=== PATIENT | male | born 1950 | race Caucasian/White ===

== ENCOUNTER → 2016-05-11 | Outpatient (CLI) | payer OTHER, BC | LOC: MMPC 10:00 | PROVIDERS: ATTEND Podiatrist Foot & Ankle Surgery | DX: E29.1 Testicular hypofunction (principal); L97.521 Non-pressure chronic ulcer of other part of left foot limited to breakdown of skin; E11.9 Type 2 diabetes mellitus without complications; I87.2 Venous insufficiency (chronic) (peripheral); E66.01 Morbid (severe) obesity due to excess calories; F17.209 Nicotine dependence, unspecified, with unspecified nicotine-induced disorders | CPT/HCPCS: 29581 ×2; A6207; A6441; A6443; A6449; A6454; G0463; J1071 ==

== ENCOUNTER → 2016-05-19 | Outpatient (CLI) | payer OTHER, BC ==
[2016-05-19 11:40] LABS: BASOPHILS # (AUTO) 0.06 10*3/UL; BASOPHILS % (AUTO) 0.5 % (0-1); EOSINOPHILS % (AUTO) 4.5 % (0-8); HEMATOCRIT 39.4 % (42.0-52.0); HEMOGLOBIN 13.3 g/dL (14.0-18.0); IMM GRAN % (AUTO) 0.4 % (0-5); IMM GRAN# (AUTO) 0.05 10*3/UL; LYMPHOCYTES # (AUTO) 2.88 10*3/uL; LYMPHOCYTES % (AUTO) 23.8 % (10-50); MEAN CORPUSCULAR HEMOGLOBIN 29.2 PG (27-31); MEAN CORPUSCULAR HGB CONC 33.8 g/dL (33-37); MONOCYTES # (AUTO) 1.07 10*3/UL (0.3-0.8); MONOCYTES % (AUTO) 8.8 % (5-15); RDW COEFFICIENT OF VARIATION 16.4 % (11.5-14.5); RED BLOOD COUNT 4.56 10^6/uL (4.70-6.10)
[2016-05-19 11:42] LABS: PLATELET MORPHOLOGY COMMENT NORMAL MORPHOLOGY (NORM)
[2016-05-19 11:59] LABS: HEMOGLOBIN A1C 5.86 % (4.2-6.0); MEAN BLOOD GLUCOSE (CALC) 109.138 mg/dL
[2016-05-19 12:12] LABS: ASPARTATE AMINO TRANSFERASE 18 IU/L (21-57); BILIRUBIN,TOTAL 0.5 mg/dL (0.3-1.2); BLOOD UREA NITROGEN 18 mg/dL (7-22); CALCIUM 9.9 mg/dL (8.7-10.7); CHLORIDE 95 meq/L (98-112); CREATININE 0.8 mg/dL (0.70-1.50); EST GLOMERULAR FILTRATION > 60 (>60 ml/min/1.73m(2)); GLUCOSE 92 mg/dL (78-110); SODIUM 134 meq/L (135-145); TOTAL PROTEIN 6.6 g/dL (6.1-8.0)
[2016-05-19 12:13] LABS: LDL CHOLESTEROL,CALCULATED 109.2 mg/dL; URIC ACID 6.2 mg/dl (3.8-8.5)
== END ==
LOC: MOB LAB 11:04
PROVIDERS: ATTEND Internal Medicine
DX: E11.9 Type 2 diabetes mellitus without complications (principal); E78.5 Hyperlipidemia, unspecified; J44.9 Chronic obstructive pulmonary disease, unspecified; E29.1 Testicular hypofunction; M10.9 Gout, unspecified; F17.210 Nicotine dependence, cigarettes, uncomplicated; Z12.5 Encounter for screening for malignant neoplasm of prostate; Z79.899 Other long term (current) drug therapy
CPT/HCPCS: 36415; 80053; 80061; 82550; 83036; 84403; 84443; 84550; 85025; G0103

== ENCOUNTER → 2016-05-24 | Outpatient (CLI) | payer OTHER, BC ==
[2016-05-24 10:47] LABS: CREATININE, URINE 79.4 MG/DL (15-500)
== END ==
LOC: LAB 10:27
PROVIDERS: ATTEND Internal Medicine
DX: E11.9 Type 2 diabetes mellitus without complications (principal)
CPT/HCPCS: 82043

== ENCOUNTER → 2016-05-26 | Outpatient (CLI) | payer OTHER, BC | LOC: MMPC 10:00 | PROVIDERS: ATTEND Podiatrist Foot & Ankle Surgery | DX: L97.522 Non-pressure chronic ulcer of other part of left foot with fat layer exposed (principal); E11.9 Type 2 diabetes mellitus without complications; E66.01 Morbid (severe) obesity due to excess calories; I87.2 Venous insufficiency (chronic) (peripheral) | CPT/HCPCS: 29581 ×2; A6441; A6443; A6449; A6454; G0463 ==

== ENCOUNTER → 2016-06-08 | Outpatient (CLI) | payer OTHER, BC | LOC: MMPC 10:00 | PROVIDERS: ATTEND Podiatrist Foot & Ankle Surgery | DX: L97.522 Non-pressure chronic ulcer of other part of left foot with fat layer exposed (principal); E11.622 Type 2 diabetes mellitus with other skin ulcer; I87.2 Venous insufficiency (chronic) (peripheral); I87.8 Other specified disorders of veins; F17.210 Nicotine dependence, cigarettes, uncomplicated | CPT/HCPCS: 29581 ×2; A6207; A6441; A6443; A6449; A6454; G0463 ==

== ENCOUNTER → 2016-06-23 | Outpatient (CLI) | payer OTHER, BC | LOC: MMPC 10:00 | PROVIDERS: ATTEND Podiatrist Foot & Ankle Surgery | DX: L97.522 Non-pressure chronic ulcer of other part of left foot with fat layer exposed (principal); I87.2 Venous insufficiency (chronic) (peripheral); E11.622 Type 2 diabetes mellitus with other skin ulcer; E29.1 Testicular hypofunction; F17.218 Nicotine dependence, cigarettes, with other nicotine-induced disorders; I73.9 Peripheral vascular disease, unspecified | CPT/HCPCS: 29581; 99213; A6207 ==

== ENCOUNTER → 2016-07-13 | Outpatient (CLI) | payer OTHER, BC | LOC: MMPC 10:00 | PROVIDERS: ATTEND Podiatrist Foot & Ankle Surgery | DX: L97.322 Non-pressure chronic ulcer of left ankle with fat layer exposed (principal); L97.522 Non-pressure chronic ulcer of other part of left foot with fat layer exposed; L97.221 Non-pressure chronic ulcer of left calf limited to breakdown of skin; E11.622 Type 2 diabetes mellitus with other skin ulcer; E66.01 Morbid (severe) obesity due to excess calories; I87.2 Venous insufficiency (chronic) (peripheral); E29.1 Testicular hypofunction; I73.9 Peripheral vascular disease, unspecified; Z89.511 Acquired absence of right leg below knee; F17.219 Nicotine dependence, cigarettes, with unspecified nicotine-induced disorders | CPT/HCPCS: 99213; G0463; J1071 ==

== ENCOUNTER → 2016-07-22 | Outpatient (CLI) | payer OTHER, BC | LOC: MMPC 10:00 | PROVIDERS: ATTEND Podiatrist Foot & Ankle Surgery | DX: E11.9 Type 2 diabetes mellitus without complications (principal); E66.01 Morbid (severe) obesity due to excess calories; I87.2 Venous insufficiency (chronic) (peripheral); E11.52 Type 2 diabetes mellitus with diabetic peripheral angiopathy with gangrene; F17.209 Nicotine dependence, unspecified, with unspecified nicotine-induced disorders | CPT/HCPCS: 97602; G0463 ==

== ENCOUNTER 2016-08-03 10:47 | Emergency (ER) | payer OTHER, BC ==
[2016-08-03] MEDS ORDERED: ONDANSETRON 4 MG/2 ML VIAL IVP ONE (11:11)
[2016-08-03] MEDS ORDERED: MORPHINE SULFATE 4 MG/1 ML IVP ONE (11:11)
[2016-08-03] MEDS ORDERED: Sodium Chloride 0.9% 1,000 ML PRIMARY IV ONE (11:11)
--- NOTE | 2016-08-03 11:17 | PDOC ---
Foot / Ankle Injury - General Chief Complaint: Lower Extremity Problem/Injury Stated Complaint: NOT FEELING WELL, L LEG NUMB/BLACK x2 DAYS Date Seen by Provider: 08/03/16 Time Seen by Provider: 11:12 Source: POSITIVE: Patient, Spouse Exam Limitations: POSITIVE: No limitations Nurse's Notes Reviewed & Considered: Yes - History of Present Illness Initial Comments: The patient comes in today with a chief complaint of leg pain left lower extremity. Patient just finished a course of Keflex yesterday for infection in his left lower extremity. At this time he denies any fevers chills sweats, nausea vomiting or diarrhea, no chest pain, no shortness of breath, no cough. His pain has been increasing over the last 2 days, and his states that his swelling and exudate from his wounds has increased. He has a large eschar over the dorsum of his left foot. 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 His wounds initially started as a small pressure ulcer on his foot. Now the entire lower leg below the knee is involved. Have you received a tetanus shot in the past 10 years?: Unknown Location: Left Foot Timing: REPORTS: Constant Duration: Unknown Severity: Severe Quality: REPORTS: "Pain", Throbbing Location at Time of Onset: REPORTS: Home Context: REPORTS: Other (wound infection) Modifying Factors: REPORTS: Movement, Nothing Relieves Associated Symptoms: REPORTS: Numbness Distally, Swelling Any Prior Injuries Related to Current Complaint?: Yes (vasculopathy) - Patient Allergies Allergies/Adverse Reactions: Allergies Allergy/AdvReac Type Severity Reaction Status Date / Time Penicillins Allergy Severe Anaphylaxis Verified 08/03/16 10:51 Sulfa (Sulfonamide Allergy Unknown childhood Verified 08/03/16 10:51 Antibiotics) - Patient Home Medications Home Medications: Home Medications Garlic [Garlic Oil] 1 each PO DAILY 11/09/10 Cholecalciferol (Vitamin D3) [Vitamin D3] 1 cap PO QD #90 cap 04/07/14 Aspirin [Aspirin EC] 1 tab PO QD #90 tab 07/13/15 Oxycodone HCl [Oxaydo] 75 mg PO Q6H 12/13/15 Permethrin 60 gm TOPICAL ONCE #1 tube 04/07/16 Testosterone Cypionate 0.5 ml IM every 2 weeks #0 ml 12/07/16 Collagenase Ointment [Santyl Ointment] 30 gm TOPICAL QD #1 tube 04/28/16 Lisinopril 1 tab PO DAILY #30 tab 05/10/16 Allopurinol 0.5 tab PO QD #30 tab 05/24/16 Furosemide [Lasix] 2 tab PO QAM #60 tab 05/24/16 Gabapentin 1 cap PO TID #90 cap 05/24/16 Potassium Chloride [Klor-Con M20] 1 tab PO DAILY #30 tab 05/24/16 Ipratropium Aubrey 1 - 2 spr LUCY AC PRN #1 spray 05/26/16 Levalbuterol Tartrate [Xopenex Hfa] 2 puff INH Q4-6H PRN #2 inh 06/09/16 Triamcinolone Acetonide 60 gm TP QID PRN #3 tube 08/02/16 Past Medical History - heen HEENT History: Hard of Hearing, Dental Disorders Additional HEENT History: NO TEETH Cardiovascular History: Hypertension, PVD, Hyperlipidemia Respiratory History: Asthma, COPD, Sleep Apnea, Home Oxygen Use, Home CPAP Use Additional Respiratory History: 3 LITERS AT NOC Gastrointestinal History: Diverticulitis Additional Gastrointestinal History: LLQ PAIN. CONSTIPATION Genitourinary History: Denies History Endocrine History: Denies History Additional Endocrine History: STOPPED JANUMET FOR 3 MONTHS, LOST 77 POUNDS. 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 Anesthesia Reactions: No Malignant Hyperthermia: No Significant Family History: Cancer, COPD, Diabetes, Heart disease, Hypertension ROS - Limitations ROS Limitations: No Limitations Constitution: REPORTS: Denies Symptoms Cardiovascular: REPORTS: Denies Cardiac Symptoms Respiratory: REPORTS: Denies Resp Symptoms Neurological: REPORTS: Denies Neuro Symptoms Gastrointestinal: REPORTS: Denies GI Symptoms Endocrine: REPORTS: Fatigue Musculoskeletal: REPORTS: Calf Pain, Lower Extremity Swelling, Pedal Edema, Other (Eschar of the dorsum of the left foot, severe edema, breakdown of skin from the knee down.) Genitourinary: REPORTS: Denies Symptoms Eyes: REPORTS: Denies Symptoms ENT: REPORTS: Denies Symptoms Skin: REPORTS: Other (Skin infection and breakdown of the skin secondary to poor perfusion of the left lower extremity.) Lympathic: REPORTS: Denies Lympathic Symptoms Immunologic: POSITIVE: Denies Symptoms Psychiatric: POSITIVE: Denies Psych Symptoms Foot / Ankle Exam - General Appearance General Appearance: POSITIVE: Alert, Cooperative, No Evidence of Trauma, Moderate Distress - Extremities Foot: POSITIVE: Soft Tissue Tenderness, Bony Tenderness, Swelling, Mir. ROM d/t Decr. Funct., Other (eschar over the dorsum of the foot, breakdown of the skin secondary to poor perfusion.) Ankle: POSITIVE: Soft-Tissue Tenderness, Swelling, Ecchymosis Gait: POSITIVE: Unable to Bear Weight Neuro: POSITIVE: Decreased Fine Touch Vascular: POSITIVE: Cool Extremity, Poor Capillary Refill, Absent Pulses Tendons: POSITIVE: Limited Extension, Limited Flexion Skin: POSITIVE: Warm, Dry, Other (no rashes) - HEENT HEENT: POSITIVE: Head Inspection Nml, Eyes Inspection Nml, Ears Inspection Nml, Nose Inspection Nml, PERRL, EOMI - Neck / Back Neck / Back: Normal Inspection, Non-Tender - Respiratory / CVS Respiratory / CVS: POSITIVE: Chest Non-Tender, No Respiratory Distress, Heart Sounds Normal, Regular Rate/Rhythm, Breath Sounds Normal Peripheral Pulses: Dorsalis-pedis (L): 0 - Abdomen Abdomen: Soft: (All Quadrants), Normal Bowel Sounds: (All Quadrants), Denies Tenderness: (All Quadrants) Foot / Ankle Progress - Results Reviewed by me Pain Medication Addressed: POSITIVE: Yes Lab Results Reviewed: Yes Lab Results:: Laboratory Results 08/03/16 Range/Units 11:20 WBC 18.79 H (4.8-10.8) 10^3/uL RBC 4.55 L (4.70-6.10) 10^6/uL Hgb 12.5 L (14.0-18.0) g/dL Hct 38.4 L (42.0-52.0) % MCV 84.4 (80-90) FL MCH 27.5 (27-31) PG MCHC 32.6 L (33-37) g/dL RDW Std Deviation 45.1 (39-50) fL RDW Coeff of Darius 15.0 H (11.5-14.5) % Plt Count 431 H (140-350) 10*3/uL MPV 9.5 (7.4-12.2) FL Neutrophils % (Manual) 86 H (50-80) % Band Neutrophils % 2 (0-10) % Lymphocytes % (Manual) 7 L (10-50) % Monocytes % (Manual) 4 (0-12) % Eosinophils % (Manual) 1 (0-8) % Basophils % (Manual) 0 (0-1) % Metamyelocytes % Not Reportable Myelocytes % Not Reportable Promyelocytes % Not Reportable Blast Cells Not Reportable WBC Morphology Comment Normal morphology (NORM) Plt Morphology Comment Normal morphology (NORM) RBC Morph Comment Normal morphology (NORM) Sodium 137 (135-145) meq/L Potassium 3.9 (3.8-5.2) meq/L Chloride 100 (98-112) meq/L Carbon Dioxide 25 (23-33) meq/L Anion Gap 12 (5-20) BUN 13 (7-22) mg/dL Creatinine 0.7 (0.70-1.50) mg/dL Estimated GFR > 60 (>60 ml/min/1.73m(2)) BUN/Creatinine Ratio 18.57 (6-20) Glucose 132 H (78-110) mg/dL Calculated Osmolality 285.0 (267-292) mOsm/kg Lactic Acid 1.9 (0.70-2.10) MMOL/L Calcium 9.3 (8.7-10.7) mg/dL Magnesium 1.8 (1.6-2.4) mg/dL Total Bilirubin 0.6 (0.3-1.2) mg/dL AST 40 (21-57) IU/L ALT 28 (21-72) IU/L Alkaline Phosphatase 108 (38-126) IU/L NT-Pro-B Natriuret Pep 927 H (0-125) PG/ML Total Protein 7.3 (6.1-8.0) g/dL Albumin 3.4 L (3.5-4.8) g/dL Globulin 3.9 (2.50-4.10) g/dL Albumin/Globulin Ratio 0.80 L (1.3-2.0) mg/g - Patient's Progress Status: POSITIVE: Unchanged MDM / ED Course: The patient was evaluated, an IV started, blood drawn and sent to the lab for studies, morphine and Zofran as well as normal saline were provided IV. Findings: CBC shows a white count of 18.7, anemia with hemoglobin of 12. Wound cultures show many gram-positive cocci, rare gram-negative rods, moderate white blood cells. Comprehensive metabolic panel is unremarkable with good renal function. BNP is slightly elevated. SAVANNAH was performed and shows a 0.7. I feel that this SAVANNAH is most likely artificially elevated because of incompressible arteries. Assessment: Arterial insufficiency with multiple infected wounds of the left lower extremity. Plan: I was able to contact Dr.Johnna Moreland and [place] [facility] [place] graciously accepted the patient for transfer. Patient has need for orthopedic consultation, vascular consultation, and infectious disease consultation. - Consult Counseled: POSITIVE: Patient, Family, RE: Lab Results, RE: DX Patient Care Time - Estimated PCT Patient Care Time (In Minutes): 30 Vital Signs - Recent Vital Signs Vital Signs: Vital Signs (Last 8 hours) Temp Pulse Resp BP Pulse Ox 08/03/16 10:42 97.4 F 104 H 20 113/103 91 - VS Reviewed Vital Signs Reviewed: Yes Discharge Clinical Impression: Vascular insufficiency of extremity, Local infection of wound Discharge Disposition: Transferred to Tertiary Care Facility Condition: Stable Date Decision to Transfer to Another Facility: 08/03/16 Time Decision to Transfer to Another Facility: 12:52
[2016-08-03 11:35] VITALS: RESP 20
[2016-08-03 11:38] LABS: HEMATOCRIT 38.4 % (42.0-52.0); HEMOGLOBIN 12.5 g/dL (14.0-18.0); MEAN CORPUSCULAR HEMOGLOBIN 27.5 PG (27-31); MEAN CORPUSCULAR HGB CONC 32.6 g/dL (33-37); MEAN CORPUSCULAR VOLUME 84.4 FL (80-90); MEAN PLATELET VOLUME 9.5 FL (7.4-12.2); RED BLOOD COUNT 4.55 10^6/uL (4.70-6.10)
[2016-08-03 11:50] LABS: BLOOD UREA NITROGEN 13 mg/dL (7-22); BUN/CREATININE RATIO 18.57 (6-20); CALCIUM 9.3 mg/dL (8.7-10.7); EST GLOMERULAR FILTRATION > 60 (>60 ml/min/1.73m(2)); MAGNESIUM 1.8 mg/dL (1.6-2.4); SERUM ALBUMIN 3.4 g/dL (3.5-4.8)
[2016-08-03 11:55] LABS: BAND NEUTROPHILS % 2 % (0-10); BASOPHILS % (MANUAL) 0 % (0-1); EOSINOPHILS % (MANUAL) 1 % (0-8); LYMPHOCYTES % (MANUAL) 7 % (10-50); MONOCYTES % (MANUAL) 4 % (0-12); NEUTROPHILS % (MANUAL) 86 % (50-80)
[2016-08-03 11:56] LABS: PLATELET MORPHOLOGY COMMENT NORMAL MORPHOLOGY (NORM); RBC MORPHOLOGY COMMENT NORMAL MORPHOLOGY (NORM); WBC MORPHOLOGY COMMENT NORMAL MORPHOLOGY (NORM)
[2016-08-03 13:35] VITALS: TEMP 98.5
== END 2016-08-03 13:15 | disposition short-term general hospital (02) ==
LOC: ER 10:47 → SUPCPDRO 10:47 → ER 13:15
DX: L08.89 Other specified local infections of the skin and subcutaneous tissue (principal); I99.8 Other disorder of circulatory system; Z89.621 Acquired absence of right hip joint
CPT/HCPCS: 36415; 80053; 83605; 83735; 83880; 85007; 87040; 87070; 87077; 87186; 87205; 96374; 96375; 99282; J2270; J2405; J7030

== ENCOUNTER 2016-08-11 10:37 | Inpatient (IN) | payer OTHER, BC ==
--- NOTE | 2016-08-11 11:22 | PDOC ---
History and Physical - History of Present Illness Chief Complaint: Bilateral lower leg amputee here for rehabilitation History of Present Illness: This very nice 66-year-old gentleman with the history of severe peripheral vascular disease and U pathic peripheral neuropathy he had a right above-knee amputation and a right [id number] amputation on 12/31/2015 and they 're to nonhealing presumed arterial ulceration and wound infection at that time and was discharged to [facility] and he started having some ulcers in the left foot is also on the left but continued to get worse they were infected then the patient underwent below the knee amputation of on the left side at this point. Comes here to [facility] [place] in the swing bed unit for continued rehabilitation I believe the patient continues smoking up until his last admission to [facility] Past Medical History Medical History: Gout, hypertension, chronic pain, hypercholesterolemia, peripheral neuropathy, Surgical History: Now BK AKA of the left leg Spinal fusion, BKA and now BKA of the right leg Substance Use Type: None Medication / Allergies Home Medications: Home Medications Medication Instructions Recorded Confirmed Type Garlic [Garlic Oil] 1 each PO DAILY 11/09/10 08/03/16 History Cholecalciferol (Vitamin D3) 1 cap PO QD #90 cap 04/07/14 08/03/16 Clinic [Vitamin D3] Aspirin [Aspirin EC] 1 tab PO QD #90 tab 07/13/15 08/03/16 Clinic Oxycodone HCl [Oxaydo] 75 mg PO Q6H 12/13/15 08/03/16 History Permethrin 60 gm TOPICAL ONCE #1 tube 04/07/16 08/03/16 Clinic Testosterone Cypionate 0.5 ml IM every 2 weeks #0 ml 04/13/16 08/03/16 Clinic Collagenase Ointment [Santyl 30 gm TOPICAL QD #1 tube 04/28/16 08/03/16 Clinic Ointment] Lisinopril 1 tab PO DAILY #30 tab 05/10/16 08/03/16 Clinic Allopurinol 0.5 tab PO QD #30 tab 05/24/16 08/03/16 Clinic Furosemide [Lasix] 2 tab PO QAM #60 tab 05/24/16 08/03/16 Clinic Gabapentin 1 cap PO TID #90 cap 05/24/16 08/03/16 Clinic Potassium Chloride [Klor-Con M20] 1 tab PO DAILY #30 tab 05/24/16 08/03/16 Clinic Ipratropium Beeson 1 - 2 spr LUCY AC PRN #1 spray 05/26/16 08/03/16 Clinic Levalbuterol Tartrate [Xopenex Hfa] 2 puff INH Q4-6H PRN #2 inh 06/09/16 Clinic Triamcinolone Acetonide 60 gm TP QID PRN #3 tube 08/02/16 08/03/16 Clinic Allergies/Adverse Reactions: Allergies Allergy/AdvReac Type Severity Reaction Status Date / Time Penicillins Allergy Severe Anaphylaxis Verified 08/11/16 11:17 Sulfa (Sulfonamide Allergy Unknown childhood Verified 08/11/16 11:17 Antibiotics) Review of Systems - Review of Systems All Systems: Reviewed & No Additional Complaints Except as Stated - Respiratory Respiratory: REPORTS: Negative System Review - Cardiovascular Cardiovascular: REPORTS: Negative System Review - Gastrointestinal Gastrointestinal / Abdominal: REPORTS: Negative System Review Exam - Vitals Vital Signs: Vital Signs Height 5 ft 10 in Weight 86.636 kg - General General Appearance: POSITIVE: No Acute Distress, Cooperative - Head Head Exam: POSITIVE: Normocephalic, Atraumatic - Eye Eye Exam: POSITIVE: Normal Appearance - ENT ENT Exam: POSITIVE: Normal Exam - Respiratory Respiratory Exam: POSITIVE: Clear to Auscultation - Bilaterally, Breathing Non Labored, Normal To Percussion, Normal to Percussion and Palpation - Cardiovascular Cardiovascular Exam: POSITIVE: RRR, No Murmur, No Clicks, No Gallops - GI/Abdominal GI/Abdominal Exam: POSITIVE: Normal Bowel Sounds, Non Tender, Non Distended, Soft - Extremities Extremities Exam: POSITIVE: No Edema Present - Neurological Neurological Exam: POSITIVE: Alert, Oriented x 3, CN II-XII Intact, No Facial Droop, Speech Intact / Clear Assessment and Plan - Patient Problems (1) History of gout Current Visit: No Status: Acute Comment: Continue allopurinol (2) Hypertension Current Visit: No Status: Acute Comment: The above blood pressure meds (3) Vascular insufficiency of extremity Current Visit: No Status: Acute Comment: Status post bilateral above the knee and below the knee amputations of both extremities left one is most recent continued rehabilitation (4) Complete below knee amputation of left lower extremity Current Visit: Yes Status: Acute Photo / Body Diagrams - Uploaded Photos Uploaded Photos:
[2016-08-11] MEDS ORDERED: CHOLECALCIFEROL PO SCH (11:30)
[2016-08-11] MEDS ORDERED: COLLAGENASE TOPICAL SCH (11:30)
[2016-08-11] MEDS ORDERED: oxyCODONE IR Tab 15 MG TAB PO SCH (14:00)
[2016-08-11] MEDS ORDERED: GABAPENTIN 300 MG CAPSULE PO SCH (15:00)
[2016-08-11] MEDS ORDERED: OXYCODONE IR PO SCH (15:45)
[2016-08-11] MEDS: GABAPENTIN 300 MG CAPSULE PO SCH (18:51)
[2016-08-11] MEDS ORDERED: OXYCODONE IR PO ONE (20:00)
[2016-08-12] MEDS: OXYCODONE IR PO SCH ×4 (00:20→18:43)
[2016-08-12] MEDS: ALLOPURINOL 300 MG TABLET PO SCH (05:08)
[2016-08-12] MEDS: GABAPENTIN 300 MG CAPSULE PO SCH ×3 (05:08→18:48)
[2016-08-12] MEDS: CHOLECALCIFEROL 1000 IU TABLET PO SCH (05:09)
[2016-08-12] MEDS: ENOXAPARIN SODIUM 40 MG/0.4 ML SYRINGE SUBCUT SCH (05:09)
[2016-08-12 05:34] LABS: BASOPHILS # (AUTO) 0.11 10*3/UL; BASOPHILS % (AUTO) 0.7 % (0-1); EOSINOPHILS # (AUTO) 1.47 10*3/UL; EOSINOPHILS % (AUTO) 9.1 % (0-8); HEMATOCRIT 25.7 % (42.0-52.0); HEMOGLOBIN 8.1 g/dL (14.0-18.0); LYMPHOCYTES # (AUTO) 2.98 10*3/uL; MEAN CORPUSCULAR HEMOGLOBIN 27.2 PG (27-31); MEAN CORPUSCULAR HGB CONC 31.5 g/dL (33-37); MEAN CORPUSCULAR VOLUME 86.2 FL (80-90); MEAN PLATELET VOLUME 9.2 FL (7.4-12.2); MONOCYTES % (AUTO) 7.4 % (5-15); NEUTROPHILS # (AUTO) 10.23 10*3/UL; NEUTROPHILS % (AUTO) 63.4 % (50-80); RED BLOOD COUNT 2.98 10^6/uL (4.70-6.10)
[2016-08-12 05:42] LABS: BLOOD UREA NITROGEN 12 mg/dL (7-22); BUN/CREATININE RATIO 17.14 (6-20); CALCIUM 8.6 mg/dL (8.7-10.7); EST GLOMERULAR FILTRATION > 60 (>60 ml/min/1.73m(2)); SERUM ALBUMIN 2.3 g/dL (3.5-4.8)
[2016-08-12 05:44] LABS: PLATELET MORPHOLOGY COMMENT NORMAL MORPHOLOGY (NORM); RBC MORPHOLOGY COMMENT NORMAL MORPHOLOGY (NORM); WBC MORPHOLOGY COMMENT NORMAL MORPHOLOGY (NORM)
[2016-08-12] MEDS ORDERED: ASPIRIN EC 81 MG TABLET PO SCH (09:00)
[2016-08-12] MEDS ORDERED: CHOLECALCIFEROL 1000 IU TABLET PO SCH (09:00)
[2016-08-12] MEDS ORDERED: ENOXAPARIN SODIUM 40 MG/0.4 ML SYRINGE SUBCUT SCH (09:00)
[2016-08-12] MEDS ORDERED: GARLIC PO SCH (09:00)
[2016-08-12] MEDS ORDERED: ALLOPURINOL 300 MG TABLET PO SCH (09:00)
--- NOTE | 2016-08-12 11:16 | PT.PROG ---
Progress Note Progress Note: S. Patient stated that his back is hurting a lot today. O. Patient performed supine to sit transfers then performed slide board transfer to his power chair. Patient was left with OT for further therapy. A. Patient required max assist to transfer to the slide board and into the chair. Patient would continue to benefit from skilled therapy to increase strength to be able to perform transfer with less dependency. P. continue POC.
--- NOTE | 2016-08-12 12:04 | OT.PROG ---
Progress Note Progress Note: S: pt reported that he had his surgery last monday. Reports being up for the first time in w/c today. O: pt was seen in room in the a.m. OT assisted PT with slide board transfer. He transferred outside in electric w/c. He completed exercises outside with GTB in tricep flex, bicep flex and shoulder ext all with BUE's x20. At this time pt reported severe back pain. We returned to his room and completed slideboard transfer with min A x2, Bed mobility also was completed with mod A secondary to increase pain in back. pt was left in supine position with call light within reach. A: pt completed transfer for first time well. He may need to increase UE strength to assist with transfers. P: continue per plan of care.
--- NOTE | 2016-08-12 16:22 | PT.PROG ---
Progress Note Progress Note: S. Patient stated that he would like to go outside. O. Patient performed supine to sit transfer with log roll then performed slide board transfer to the power chair. Patient was left with OT for further treatment. A. Patient required mod assist with log roll transfer and slide board transfer. Patient continues to be very weak with core and balance activities. Patient would continue to benefit from skilled therapy to increase strength for less dependent transfer. P. Continue POC.
--- NOTE | 2016-08-12 16:47 | OT.PROG ---
Progress Note Progress Note: S: pt states that he has back pain which is worse than his leg pain. O: pt was seen in his room in the p.m. and completed ther ex with GTB with BUE' s x20 in all ranges to increase UE strength to assist with transfers. After pt completed PT, OT assisted him back into bed with min A x2 with slide board. pt was assisted with bed mobility as well Min A x2. He was left in supine position with bed available. A: pt completed transfer better with trapeze to assist him. Continue to use slide board and monitor back pain. P: continue to progress per plan of care.
[2016-08-13] MEDS: OXYCODONE IR PO SCH ×4 (00:14→17:45)
[2016-08-13] MEDS: CHOLECALCIFEROL 1000 IU TABLET PO SCH (05:24)
[2016-08-13] MEDS: ENOXAPARIN SODIUM 40 MG/0.4 ML SYRINGE SUBCUT SCH (05:24)
[2016-08-13] MEDS: ASPIRIN EC 81 MG TABLET PO SCH (05:24)
[2016-08-13] MEDS: ALLOPURINOL 300 MG TABLET PO SCH (05:24)
[2016-08-13] MEDS: GABAPENTIN 300 MG CAPSULE PO SCH ×3 (05:25→17:45)
--- NOTE | 2016-08-13 11:05 | PT.PROG ---
Progress Note Progress Note: S: pt reports he is having alot of back pain. pt reports he is agreeable to hand exercises and sitting exercises. Pt reports he is feeling fair. O: nsg okay'd prior to PT. pt required mod assist x 1 and iker handrails for seated in middle of bed with bed flat. pt instructed in 3# bicep curls x 10 reps each, ER pulleys RTB x 10 each. pt sat 5 minutes in middle of bed with 1 Handrail for safety and stability. pt issued MHP for lumbar spine for back pain relief. Pt returned to HOB elevated position and left in room with bed alarm activated and call light within reach. A: pt tolerated therapy poor today, in alot of pain today. pt continues to benefit from skilled therapy P: cont per POC
[2016-08-13] MEDS ORDERED: POLYETHYLENE GLYCOL 3350 17 GM POWDER ONE (21:05)
[2016-08-14] MEDS: OXYCODONE IR PO SCH ×5 (00:05→23:25)
[2016-08-14] MEDS: ASPIRIN EC 81 MG TABLET PO SCH (05:52)
[2016-08-14] MEDS: GABAPENTIN 300 MG CAPSULE PO SCH ×3 (05:52→18:30)
[2016-08-14] MEDS: CHOLECALCIFEROL 1000 IU TABLET PO SCH (05:52)
[2016-08-14] MEDS: ALLOPURINOL 300 MG TABLET PO SCH (05:52)
[2016-08-14] MEDS: ENOXAPARIN SODIUM 40 MG/0.4 ML SYRINGE SUBCUT SCH (05:53)
[2016-08-14] MEDS: POLYETHYLENE GLYCOL 3350 17 GM POWDER PO PRN ×2 (06:00→18:30)
--- NOTE | 2016-08-14 12:17 | PT.PROG ---
Progress Note Progress Note: S: pt reports he needs to use the commode. pt reports he has been doing slide board transfers at home O: nsg okay'd and was present during therapy. pt required max assist x 2 for LE dressing and Max assist x 3 for slide board transfer to commode. pt left on commode with nsg present post treatment. A: pt transfer with slide board requires max of 3 currently. pt not safe at this time to perform at home or ind. P: cont per POC
[2016-08-14] MEDS: NYSTATIN 15 GM POWDER TOPICAL PRN (18:30)
[2016-08-15] MEDS: OXYCODONE IR PO SCH ×3 (05:32→17:26)
[2016-08-15] MEDS: ENOXAPARIN SODIUM 40 MG/0.4 ML SYRINGE SUBCUT SCH (05:32)
[2016-08-15] MEDS: CHOLECALCIFEROL 1000 IU TABLET PO SCH (05:33)
[2016-08-15] MEDS: ALLOPURINOL 300 MG TABLET PO SCH (05:33)
[2016-08-15] MEDS: ASPIRIN EC 81 MG TABLET PO SCH (05:34)
[2016-08-15] MEDS: GABAPENTIN 300 MG CAPSULE PO SCH ×3 (05:34→17:24)
[2016-08-15] MEDS: NYSTATIN 15 GM POWDER TOPICAL PRN ×2 (05:35→15:08)
[2016-08-15] MEDS: POLYETHYLENE GLYCOL 3350 17 GM POWDER PO PRN (05:35)
--- NOTE | 2016-08-15 10:12 | OTI REPORT ---
Thank you for the referral of Galo Obrien. He was seen on 08/11/16 for an occupational therapy swingbed evaluation secondary to a left above the knee amputation. SUBJECTIVE: The patient is a 66-year-old male who was seen following a left above the knee amputation. The patient already has a right above the knee amputation which was completed a few years ago. The patient's was present during the evaluation today. The patient just had the amputation done in [place]. He was sent here on a swingbed status. His goals are to return home, to be able to transfer in and out of his power chair, to be able to transfer onto and off of the toilet, and to be able to transfer in and out of bed. At this point the patient states that his tilt on his power chair is broken. [employer] is working on getting that part fixed. They are also working on possibly getting the patient a Jone lift and a toilet/shower chair with the holes so that he can transfer onto that for bathing and or toileting. The patient does live in the lower level of his daughter's home. The bottom level is set up with a handicap accessible shower. He has a higher toilet with grab bars. He also has room in his bedroom to mobilize with the power chair. Prior to this amputation, the patient's did assist with multiple things; however, the patient reports he could dress himself after set up and he could mobilize throughout the home and outside of the home with his power chair. The patient is not having difficulty with swallowing. PAST MEDICAL HISTORY: Past medical history can be found in the patient's medical record. OBJECTIVE FINDINGS: General observations: The patient is alert and oriented x4. The patient has quite severe arthritis in the shoulders as well as the hands. Bed mobility: The patient was able to come from supine to sit with max assist x2. Activities of daily living: The patient was able to sit on the edge of the bed today and work on upper extremity dressing. He balanced x2 minutes to doff his shirt and to don a hospital gown. Range of motion: The patient is able to move left upper extremity to 100 degrees. He was only able to move the right upper extremity to 70 degrees. Elbow flexion/extension was within normal limits. Wrist flexion/extension was within normal limits. Strength: Strength on the left side was 3/5. Strength on the right side was 2+/ 5. Transfers: The patient requires max assist x2 for functional transfers. ASSESSMENT: Problem List: Decreased upper extremity strength Decreased ability to perform transfers Decreased ability to complete simple ADLs/hygiene tasks Short-Term Goals: To be met by discharge from swingbed: Patient will improve upper extremity strength within the range that he has to 4+ /5 to increase strength for transfers. Patient will be able to dress himself while in bed with min assist. Patient will be able to complete a wheelchair to tub bench transfer with min assist. Patient will be able to complete shower task with min assist. Patient will be able to sit edge of bed x15 minutes while completing upper extremity reaching and functional tasks to simulate home environment. Long-Term Goals: To be met following discharge from swingbed: Patient will be discharged home, independent with all functional transfers in and out of his power chair. TREATMENT PLAN: Patient will be seen B.I.D during the week and one time per day over the weekend as a swingbed patient to address the above goals and objectives. INITIAL TREATMENT: Treatment today consisted of the swingbed evaluation followed by the patient sitting edge of bed and working on dressing task and upper extremity range of motion activities. EMILY
--- NOTE | 2016-08-15 10:26 | PTI REPORT ---
Thank you for the referral of Galo Obrien. He was seen on 08/11/16 for a swingbed evaluation secondary to a left above the knee amputation. SUBJECTIVE: The patient is a 66-year-old male who underwent a left above the knee amputation last . The patient previously has had an above the knee amputation on the right side. [facility] and just arrived in [place] as a swingbed patient earlier today. The patient states that he is doing well at this time. Prior to this last surgery the patient was utilizing a power wheelchair and also was utilizing a slide bed for his transfers. The patient has not tried any slide bed transfers yet at this time and his states that they will get his power wheelchair up here tomorrow. Otherwise, the patient has just been working on sitting edge of bed and requires assist of two to do so. The patient's is his primary caregiver for all the things that he needs. He is independent with donning and doffing shirt but does require assistance with most other ADLs. PAST MEDICAL HISTORY: Past medical history can be found in the patient's medical record. OBJECTIVE FINDINGS: General observations: The patient is alert and oriented to setting upon PT arrival. The patient was sitting up in bed. His Jacob bandages were removed from the left lower extremity to inspect incision from the above the knee amputation. The incision is closed with kayy and appears to be healing well at this time. There are some concerns about some of the skin integrity up above on the thigh as the patient does have a slight rash. He states that they did send down a cream that they had been putting on it at the [facility] to continue to use that. There are no open areas at this time or any active draining. The stump was covered back up with Jacob bandages in a figure 8 pattern to help with the shaping. Bed mobility: With max assist of two, we were able to get the patient from supine to seated edge of bed. The patient required max assist of two to go from a sitting to supine position and max assist of two for bed mobility to scoot up in the bed. Balance: The patient demonstrated fair initial balance seated edge of bed and was able to sit edge of bed x12 minutes. The patient denied any lightheadedness or dizziness when sitting up. According to the patient's , the 12 minutes edge of bed was the longest the patient has sat edge of bed since his surgery a week ago and the patient was feeling very good about that. Activities of daily living: At this time the patient was able to doff the shirt that he had and don a hospital gown with minimal assistance. ASSESSMENT: The patient has fair rehab potential due to his health status and bilateral above the knee amputations. Problem List: Decreased endurance and activity tolerance Generalized weakness contributing to difficulties with all transfers We will keep an eye on his incision as it heals Short-Term Goals: [facility] Patient will be able to transfer from supine to sit and sit to supine with no more than stand by assist x1. Patient will be able to utilize slide board with no more than contact guard assist x1 in order to transfer from bed to chair. Patient will be mod independent with setting up the slide board for transfers. We will continue to monitor the patient's incision for any changes and wound care as necessary. Long-Term Goals: To be met following discharge from swingbed: Patient will seen by outpatient physical therapy to continue with strengthening and mobility. TREATMENT PLAN: Patient will be seen B.I.D during the week and one time per day over the weekend as a swingbed patient working on supine to sit and sit to supine transfers, general bed mobility, slide board transfers, and general strengthening activities. The patient is planning on going back to see his doctor in two weeks to have his kayy removed. INITIAL TREATMENT: Treatment today consisted of the swingbed evaluation activities only. EMILY
--- NOTE | 2016-08-15 11:39 | PT.PROG ---
Progress Note Progress Note: S. Patient stated that he has a lot of pain in his abdomen and lower back. O. Patient performed exercises in bed in the form of; hip abduction/adduction, Flexion/extension, glute squeezes, abdomen squeezes all x 10, mini sit ups x 5. Patient was left in bed with alarm and call light. A. Patient tolerated hip exercises well, however core exercise was very hard for him. Patient continues to struggle with pain in his low back and abdomen. Patient would continue to benefit from skilled therapy to increase strength, mobility and endurance. P. Continue POC.
[2016-08-15] MEDS ORDERED: DIAZEPAM 2 MG TABLET PO ONE (14:59)
[2016-08-15 15:06] LABS: HEMATOCRIT 30.8 % (42.0-52.0); HEMOGLOBIN 9.6 g/dL (14.0-18.0); MEAN CORPUSCULAR HEMOGLOBIN 27.1 PG (27-31); MEAN CORPUSCULAR HGB CONC 31.2 g/dL (33-37); MEAN PLATELET VOLUME 8.9 FL (7.4-12.2); RED BLOOD COUNT 3.54 10^6/uL (4.70-6.10)
--- NOTE | 2016-08-15 15:12 | PDOC(PROG) ---
Date and Time of Service: 08/15/2016, 1503 Interval History: Complaints of back pain, present for several weeks, radiation into umbilical region in a bandlike fashion, no rash, no fevers, no chills, no pruritus, no indication on examination of this being shingles related. No nausea or vomiting , has chronic constipation related to narcotics but states that he uses narcotics for neuropathy which is gone after [id number] amputations. He would like to try to get off of narcotics if possible and wonders if he could help him with that as well. Therapy has been going okay, but has been limited by his pain in his back. He had had an appointment with a back surgeon, but could not tolerate prior MRI scan. Objective : Data - Labs CBC and BMP: 08/15/16 15:02 08/15/16 15:02 Labs - Last 24 Hours: Laboratory Results 08/13/16 Range/Units 06:01 Iron 24 L (49-181) UG/DL TIBC 176 L (261-462) ug/dL % Saturation 13.63 L (14-50) % Objective : Exam - General General Appearance: No Acute Distress, Cooperative - Eye Eye Exam: No Scleral Icterus - Respiratory Respiratory Exam: Clear to Auscultation - Bilaterally, Breathing Non Labored - Cardiovascular Cardiovascular Exam: RRR, No Murmur, No Clicks, No Gallops, No Rubs, No JVD - GI/Abdominal GI/Abdominal Exam: Normal Bowel Sounds, Non Tender, Non Distended, Soft - Rectal Rectal Exam: Deferred - External Exam: Deferred Exam: Deferred - Extremities Extremities Exam: No Clubbing Present, No Edema Present, No Cyanosis Present Additional Extremities Exam Details: incision on AKA on left is without erythema or sign of infection. incision is intact. - Neurological Neurological Exam: Alert, Oriented x 3, No Facial Droop, Speech Intact / Clear, Moves All Extremities Equally Assessment and Plan - Patient Problems (1) Above knee amputation of left lower extremity Current Visit: Yes Status: Acute (2) Hypertension Current Visit: Yes Status: Chronic Qualifiers: Hypertension type: essential hypertension Qualified Description: Essential hypertension Qualifier Code(s): (I10) Essential (primary) hypertension (3) Vascular insufficiency of extremity Current Visit: Yes Status: Chronic (4) Diabetes mellitus type II, controlled Current Visit: Yes Status: Acute Qualifiers: Diabetes mellitus complication status: with unspecified complications Diabetes mellitus exterminator insulin use: unspecified exterminator insulin use status Qualified Description: Controlled diabetes mellitus type 2 with complications, unspecified exterminator insulin use status Qualifier Code(s) : (E11.8) Type 2 diabetes mellitus with unspecified complications (5) Chronic pain syndrome Current Visit: Yes Status: Acute - Assessment / Plan Additional Assessment/Plan Details: At this point, with the back pain complaints, normal lipase, I will go ahead and get MRI scans of thoracic and lumbar spines. The pain can be radiating around from since her spine issue. Could also be related to constipation and we will start linzess for that. He has tried Movantik without help. MRI scan is mention of thoracic and lumbar spines. We'll start to taper opiates very slowly. And see if we can't get patient off of opiates entirely. I'll reduce by 5 mg every 6 hours. plan discussed with the patient and his and they agree. Anemia does appear to be improved. If we give iron therapy, given IV. Photo / Body Diagrams - Uploaded Photos Uploaded Photos:
[2016-08-15 15:17] LABS: BLOOD UREA NITROGEN 12 mg/dL (7-22); BUN/CREATININE RATIO 17.14 (6-20); CALCIUM 8.6 mg/dL (8.7-10.7); EST GLOMERULAR FILTRATION > 60 (>60 ml/min/1.73m(2))
--- NOTE | 2016-08-15 15:28 | OT.PROG ---
Progress Note Progress Note: S: pt reports severe pain all around waist when he moves. Wondering if his leg needs to be wrapped. O: pt was seen in his room and due to back pain was left in supine position to completed activities. Pt completed UE exercises with GTB to increase strength to assist with transfers. Exercises consisted of bicep flex, tricep ext, shoulder flex/ext, IROT/EROT, Hor abd all x15 al with BUE's. pt did demonstrate more pain with HOr abd. A: pt would continue to benefit from therapy to increase strength of UE's and his ability to complete transfers more Ind. P: monitor back pain , but continue to progress with plan of care.
--- NOTE | 2016-08-15 16:05 | OT.PROG ---
Progress Note Progress Note: S: pt still complains of back pain, which he reports hurts worse than leg. He is still wondering if his leg needs wrapped. O: pt seen in his room in the p.m. He lied down and donned LE shorts with MIn A. He completed Log roll to left and with MOd A completed transition from side to EOB. Assisted with slide board set up but then completed transfer with MOd Ind. Therapy was close to ensure a safe transfer. He then went outside and completed UE exercises with RTB in bicep flex, tricep ext and shoulder ext. Due to back pain exercises at this time were stopped. He returned to his room and assisted with set up of slide board and once again completed transfer with MOd Ind. Therapy assisted with log roll to R side so nursing could examine skin breakdown. Pt was left in supine position as lab came in room for blood draw. A: pt would continue to benefit from therapy to increase his strength and ability to transfer Ind. Back pain appears to be a limiting factor in his ability to complete transfers and exercises. P: continue per plan of care.
[2016-08-15] MEDS ORDERED: Linaclotide Cap 290 MCG CAPSULE PO ONE (16:30)
--- NOTE | 2016-08-15 16:55 | PT.PROG ---
Progress Note Progress Note: S. Patient stated that he is very fatigued after working with OT. He requests to have a dressing placed on his stump. O. Stump was dressed with Kirlex and Jacob wrap. Patient was left in bed with alarm and call light. A. Incision appeared clean and no infection or drainage were noted. Dressing to be changed PRN. Patient continues to struggle with pain in his back. Patient would continue to benefit from skilled therapy at this time, to increase strength to complete transfer more independently. P. Continue POC.
[2016-08-15] MEDS: oxyCODONE IR Tab 5 MG TAB PO SCH (17:24)
[2016-08-16] MEDS: OXYCODONE IR PO SCH ×5 (00:47→23:50)
[2016-08-16] MEDS: oxyCODONE IR Tab 5 MG TAB PO SCH ×5 (00:47→23:49)
[2016-08-16] MEDS: CHOLECALCIFEROL 1000 IU TABLET PO SCH (05:41)
[2016-08-16] MEDS: ALLOPURINOL 300 MG TABLET PO SCH (05:41)
[2016-08-16] MEDS: ENOXAPARIN SODIUM 40 MG/0.4 ML SYRINGE SUBCUT SCH (05:41)
[2016-08-16] MEDS: GABAPENTIN 300 MG CAPSULE PO SCH ×3 (05:41→17:13)
[2016-08-16] MEDS: ASPIRIN EC 81 MG TABLET PO SCH (05:42)
[2016-08-16] MEDS: Linaclotide Cap 290 MCG CAPSULE PO SCH (08:01)
[2016-08-16] MEDS ORDERED: DIAZEPAM 2 MG TABLET ONE (12:32)
--- NOTE | 2016-08-16 13:09 | PDOC(PROG) ---
General Note Progress Note: Some of this pain may actually be left-sided groin pain from possible hernia. We will see MRI results today. Patient did not notice any difference on reduced dose of opiates in terms of pain control, so I will reduce further by another 5 mg every 6 hours and watch over the next 24 hours or so before any further dose reductions. Had bowel movements today. Patient Problems - Patient Problem List (1) Above knee amputation of left lower extremity Current Visit: Yes Status: Acute (2) Hypertension Current Visit: Yes Status: Chronic Qualifiers: Hypertension type: essential hypertension Qualified Description: Essential hypertension Qualifier Code(s): (I10) Essential (primary) hypertension (3) Vascular insufficiency of extremity Current Visit: Yes Status: Chronic (4) Diabetes mellitus type II, controlled Current Visit: Yes Status: Acute Qualifiers: Diabetes mellitus complication status: with unspecified complications Diabetes mellitus adjunct faculty for medical terminology insulin use: unspecified shelter insulin use status Qualified Description: Controlled diabetes mellitus type 2 with complications, unspecified shelter insulin use status Qualifier Code(s) : (E11.8) Type 2 diabetes mellitus with unspecified complications, (Z79.4) jail (current) use of insulin (5) Chronic pain syndrome Current Visit: Yes Status: Acute
[2016-08-16] MEDS ORDERED: Linaclotide Cap 290 MCG CAPSULE PO ONE (14:49)
--- NOTE | 2016-08-16 16:20 | DI ---
CT THORACIC SPINE SCAN, 08/16/2016 1:42 PM : Clinical History: Thoracic back pain. Previous Exam: None at this facility. Scans are obtained from C7 to L2 without IV contrast. Sagittal and coronal reformatted images are gen erated.Curved coronal reformatted images and axial reformatted images angled through the disc spaces are also performed. There is levoscoliosis of the midthoracic spine. There is a chronic compression fracture of T2 and en dplate superior the remaining vertebral bodies are of normal height. There is superior endplate invag ination of T3. There is disc space narrowing at T10-11 and the remaining disc spaces are of normal he ight. There are no fractures. Posterior alignment and posterior elements are normal. Pedicles are nor mal. Paravertebral soft tissue planes are normal. No extradural lesions are identified. There is a sm all left pleural effusion and a slightly larger right pleural effusion. There is a right lower lobe a telectasis versus pneumonia. Osteoporosis. READIN. Small bilateral pleural effusions, larger on the right side than the left. Right lower lobe atele ctasis versus pneumonia. 2. Chronic compression fractures of T2 and T3. There is osteoporosis and with the compression fractu res, this patient by definition has severe osteoporosis. 3. Disc space narrowing at T10-11. No extradural lesions are identified and there is no canal or thang ral foraminal stenosis.
--- NOTE | 2016-08-16 17:18 | DI ---
CT LUMBAR SPINE SCAN, 08/16/2016 1:42 PM : Clinical History: Low back pain. Previous Exam: None at this facility. Scans are obtained from the lower third of T11 to S4. without IV contrast. Sagittal and coronal refor matted images are generated. Curved coronal reformatted images and axial reformatted images angled th rough the disc spaces are also performed. A metal artifact reduction scans through the disc spaces fr om L3-4 through L5-S1 are also performed. There is narrowing of the left lateral half of L2 secondary to right lateral subluxation of the body of L2 relative to L3 with erosive change of the inferior and left lateral half of L2 and the superior and posterior half of L3 indicating there is motion at this level. The remaining vertebral bodies ar e of normal height. The patient is status post laminectomies at L4 and L5 with anterior and posterior fusions at L4-5 and L5-S1. Posterior fusions are accomplished with metallic struts transfixed with p edicle screws between L4 and S1. Anterior fusions are performed with bone grafts within the bone mao t cages. The L4-5 and L5-S1 anterior fusions are not solid. At the L2-3 level where there is subluxat ion laterally of L2 on L3, in addition to the erosive and sclerotic changes of the respective endplat es, severe erosive change has developed at the left apophyseal joint at L2-3. The inferior facet of L 2 and the superior facet of L3 are eroded. A similar pattern is noted in the left apophyseal joint at L1-2. Severe degenerative arthritic changes are present in all of the remaining apophyseal joints bi laterally. T11-12 and T12-L1 disc spaces have very mild circumferentially bulging but not herniated d iscs without canal or neural foraminal stenosis. L1-2 has a grade 1 reverse spondylolisthesis with a bulging but not herniated disc. There is no canal or left neural foraminal stenosis. There is severe right neural foraminal stenosis. L2-3 has a bulging but not herniated disc without significant neural foraminal stenosis. L3-4 disc space is difficult to evaluate because of scan artifacts but there is no canal or significant neural foraminal stenosis. No canal or neural foraminal stenosis is present e ither at L4-5 or L5-S1. There is a calcific density located to the right of midline behind the body o f L4. This can either represent calcification of the disc fragment or extrusion of bone grafts from t he L4-5 disc space into the canal. The sacrum and SI joints are normal. There is osteoporosis. READIN. There is mid lumbar dextroscoliosis secondary to right lateral subluxation of L2 on L3 with erosi ve changes of the inferior and left lateral half of L2 and the superior and posterior half of the bod y of L3, indicating there is motion at this level. Erosive changes have developed in the left apophys eal joints at L2-3 as well as at L1-2. There is a bulging but not herniated disc at L2-3 without kirsten l or neural foraminal stenosis. There is a grade 1 reverse spondylolisthesis at L1-2 with a bulging b ut not herniated disc with right neural foraminal stenosis. There is no canal or left neural foramina l stenosis. 2. There are anterior and posterior fusions at L4-5 and L5-S1 without canal or neural foraminal sten osis. A calcific density is present behind the body of L4 and this can either represent extrusion of some bone grafts or a calcified extruded disc. The anterior fusions at L4-5 and L5-S1 are not solid. 3. There are bulging but not herniated discs without canal or neural foraminal stenosis at T11-12, T12-L1, and L3-4. 4. Osteoporosis.
[2016-08-16] MEDS: NYSTATIN 15 GM POWDER TOPICAL PRN (18:54)
[2016-08-17] MEDS ORDERED: IBUPROFEN 800 MG TABLET PO PRN (02:16)
[2016-08-17] MEDS: Ondansetron ODT Tab 4 MG TAB PO PRN (02:31)
[2016-08-17] MEDS: ALLOPURINOL 300 MG TABLET PO SCH (05:20)
[2016-08-17] MEDS: GABAPENTIN 300 MG CAPSULE PO SCH ×3 (05:20→17:50)
[2016-08-17] MEDS: CHOLECALCIFEROL 1000 IU TABLET PO SCH (05:20)
[2016-08-17] MEDS: ASPIRIN EC 81 MG TABLET PO SCH (05:21)
[2016-08-17] MEDS: ENOXAPARIN SODIUM 40 MG/0.4 ML SYRINGE SUBCUT SCH (05:21)
[2016-08-17] MEDS: OXYCODONE IR PO SCH ×4 (05:31→23:51)
[2016-08-17] MEDS: oxyCODONE IR Tab 5 MG TAB PO SCH ×4 (05:31→23:51)
[2016-08-17] MEDS: Linaclotide Cap 290 MCG CAPSULE PO SCH (09:31)
--- NOTE | 2016-08-17 15:22 | DI ---
VENOUS DOPPLER ULTRASOUND OF THE LEFT LOWER EXTREMITY, 08/17/2016 10:56 AM: Clinical History: Left groin pain. The patient is status post recent bilateral [id number] amputat ions. Previous Exam: None. Technique: 2D real-time imaging is supplemented with color Doppler ultrasound from the groin to just proximal to the stump. Compression and augmentation maneuvers were performed. The deep venous system from the groin to the stump is normal. The visualized portion of the greater saphenous vein is normal . Scans were also performed in the left groin region were the patient experienced pain. This area actua lly corresponds to the proximal portion of the abductor muscles. They are slightly echogenic and this may represent some edema but no hematoma is identified. Scans are performed through the inguinal can al and the spermatic cord is visualized and is normal. There is no evidence of a hernia. Readin. The deep venous system from the groin to the stump is negative. 2. There is no evidence of an inguinal hernia and the spermatic cord appears normal. 3. The area where the patient complains of pain is in the proximal and medial portion of the thigh o melissa the area of the adductor muscles. They are slightly echogenic suggesting there may be edema, but there is no hematoma identified.
--- NOTE | 2016-08-17 16:48 | PT.PROG ---
Progress Note Progress Note: Patient refused both morning and afternoon Physical Therapy treatments today. Due to back pain Plan to train on Jone lift.
--- NOTE | 2016-08-17 17:06 | OT.PROG ---
Progress Note Progress Note: S; pt still reports a lot of pain in back and afraid of skin breakdown. O: pt was seen in his room and was transferred into w/c with jone lift. was unavailable for training with Jone today. He transferred downstairs with w /c and completed UE exercises with RTB in bicep flex, rows, tricep ext, and attempted hor abd/add but increased pain. Pt returned to room and transferred with jone lift again back to supine position in bed. A: pt tolerated jone lift well, and may be best way for at home to transfer him safely without pain at home. He is still limited functionally by back pain. P: continue per plan of care. Educate on jone lift.
--- NOTE | 2016-08-17 21:48 | PDOC(PROG) ---
Date and Time of Service: 08/17/2016, 11 AM Interval History: No chest pain and no shortness breath. Abdominal pain and back pain about the same and not necessarily changed. The patient states that he has left groin pain that persists. Objective : Data - Labs CBC and BMP: 08/15/16 15:02 08/15/16 15:02 Labs - Last 24 Hours: Laboratory Results 08/13/16 Range/Units 06:01 Total Testosterone 63 L (240-950) ng/dL Free Testosteron ng/dl 1.13 L (3.47-13.0) ng/dL Bioavail Testosterone 3.4 L (40-168) ng/dL Objective : Exam - General General Appearance: No Acute Distress, Cooperative Additional General Exam Details: Vital Signs - Last Taken Temperature 98.1 F 08/17/16 19:00 Pulse Rate 55 L 08/17/16 19:00 Respiratory Rate 16 08/17/16 19:00 Blood Pressure 129/61 08/17/16 19:00 Pulse Ox 98 08/17/16 19:00 - Head Head Exam: Normal Inspection, Normocephalic, Atraumatic - Respiratory Respiratory Exam: Clear to Auscultation - Bilaterally, Breathing Non Labored Additional Respiratory Exam Details: Chronic cough noted. - Cardiovascular Cardiovascular Exam: RRR, No Murmur, No Clicks, No Gallops, No Rubs, No JVD - GI/Abdominal GI/Abdominal Exam: Normal Bowel Sounds, Non Tender, Non Distended, Soft - Additional Exam Details: I do not appreciate any groin lymphadenopathy. No erythema on evaluation. Not tender to palpation. - Extremities Additional Extremities Exam Details: Left stump from above the knee amputation is clean, dry, intact, kayy in place. Orthopedics wanted to see the patient last week of August. - Neurological Neurological Exam: Alert, Oriented x 3, No Facial Droop, Speech Intact / Clear Assessment and Plan - Patient Problems (1) Injury of adductor muscle and tendon of left thigh Current Visit: Yes Status: Acute Qualifiers: Encounter type: initial encounter Qualified Description: Injury of adductor muscle and tendon of left thigh, initial encounter Qualifier Code (s): (S76.202A) Unspecified injury of adductor muscle, fascia and tendon of left thigh, initial encounter (2) DJD (degenerative joint disease), thoracolumbar Current Visit: Yes Status: Acute (3) Above knee amputation of left lower extremity Current Visit: Yes Status: Acute (4) Hypertension Current Visit: Yes Status: Chronic Qualifiers: Hypertension type: essential hypertension Qualified Description: Essential hypertension Qualifier Code(s): (I10) Essential (primary) hypertension (5) Vascular insufficiency of extremity Current Visit: Yes Status: Chronic (6) Diabetes mellitus type II, controlled Current Visit: Yes Status: Acute Qualifiers: Diabetes mellitus complication status: with unspecified complications Diabetes mellitus intermediate card tender insulin use: unspecified [facility] insulin use status Qualified Description: Controlled diabetes mellitus type 2 with complications, unspecified [facility] insulin use status Qualifier Code(s) : (E11.8) Type 2 diabetes mellitus with unspecified complications, (Z79.4) termite exterminator helper (current) use of insulin (7) Chronic pain syndrome Current Visit: Yes Status: Acute - Assessment / Plan Additional Assessment/Plan Details: ultrasound shows some adductor muscle edema/no groin hernia or blood clot stop one dose of oxycodone continue anti-inflammatory will discuss with ortho regarding edema issue on ultrasound Photo / Body Diagrams - Uploaded Photos Uploaded Photos:
[2016-08-18] MEDS: GABAPENTIN 300 MG CAPSULE PO SCH ×3 (05:36→17:36)
[2016-08-18] MEDS: oxyCODONE IR Tab 5 MG TAB PO SCH ×2 (05:36→11:23)
[2016-08-18] MEDS: ASPIRIN EC 81 MG TABLET PO SCH (05:36)
[2016-08-18] MEDS: ENOXAPARIN SODIUM 40 MG/0.4 ML SYRINGE SUBCUT SCH (05:36)
[2016-08-18] MEDS: CHOLECALCIFEROL 1000 IU TABLET PO SCH (05:36)
[2016-08-18] MEDS: ALLOPURINOL 300 MG TABLET PO SCH (05:37)
[2016-08-18] MEDS: OXYCODONE IR PO SCH ×4 (05:38→23:27)
[2016-08-18] MEDS: Linaclotide Cap 290 MCG CAPSULE PO SCH ×2 (11:23→11:27)
[2016-08-18] MEDS ORDERED: Meloxicam Tab 7.5 MG TABLET PO ONE (14:01)
--- NOTE | 2016-08-18 16:41 | OT.PROG ---
Progress Note Progress Note: S: pt stated he was not getting out of bed. He still reports pain in back. O: pt was seen in his room and completed ther ex in supine position with GTB in shoulder ext, tricep ext, IROT/EROT, and bicep flex and exercises were stopped when he attempted hor abd but demonstrated to much pain. A: pt does not like to transfer himself as he reports there is to much pain in his back. Pt may never use slide board at this point and may benefit from training on joana lift if he is to return home. P: continue per plan of care.
--- NOTE | 2016-08-18 16:43 | PT.PROG ---
Progress Note Progress Note: S. Patient stated that he would perform exercises in his room however did not want to get out of bed. O. Patient performed slide board transfer from his chair to the bed where he performed exercises in the form of; hip abduction/adduction, Flexion/extension, glute squeezes, abdomen squeezes, and mini sit ups x 15. Patient was left in bed with alarm and call light. A. Patient tolerated hip exercises well, however core exercises were harder for him, Patient continues to struggle with pain in his low back. Patient required mod assist x 2 to perform transfer. Patient would continue to benefit from skilled therapy to increase strength, and independence with transfers. P. Continue POC.
[2016-08-19] MEDS: ALLOPURINOL 300 MG TABLET PO SCH (05:27)
[2016-08-19] MEDS: ASPIRIN EC 81 MG TABLET PO SCH (05:27)
[2016-08-19] MEDS: ENOXAPARIN SODIUM 40 MG/0.4 ML SYRINGE SUBCUT SCH (05:27)
[2016-08-19] MEDS: OXYCODONE IR PO SCH ×4 (05:27→23:26)
[2016-08-19] MEDS: GABAPENTIN 300 MG CAPSULE PO SCH ×3 (05:27→17:45)
[2016-08-19] MEDS: CHOLECALCIFEROL 1000 IU TABLET PO SCH (05:27)
[2016-08-19] MEDS: Meloxicam Tab 7.5 MG TABLET PO SCH (09:48)
--- NOTE | 2016-08-19 14:28 | PT.PROG ---
Progress Note Progress Note: Had care conference this morning. Plan is to continue with swing bed until he is able to perform transfers with less dependency. Patient should gain strength to assist with transfers before possible discharge home. Continue with POC.
[2016-08-19] MEDS: Linaclotide Cap 290 MCG CAPSULE PO SCH (14:39)
--- NOTE | 2016-08-19 14:42 | PT.PROG ---
Progress Note Progress Note: S. Patient agreed to perform exercises in bed this afternoon. O. Patient performed supine exercises in the form of; mini sit ups, side bending , abdominal squeezes, glute squeezes, hip flexion/extension, abduction/ adduction (to neutral), all x 10 bilaterally. Patient was left in bed with alarm and call light. A. Patient tolerated exercises fair this afternoon, he continues to struggle with weakness and immobility, Patient would continue to benefit from skilled therapy to increase strength and become less dependent for transfers. P. Continue POC.
--- NOTE | 2016-08-19 16:03 | OT.PROG ---
Progress Note Progress Note: S: pt reports back pain. He also reports it is less painful to transfer with joana than it is to use slide board. O: pt was seen in the room in the a.m. He was accompanied by and she was educated on the operations and parts of the joana lift. Pt was assisted with donning the sling. With supervision pt was transferred by his in [facility] to w/c successfully. Upon returning to room pt was returned to his bed using joana, directed by to a supine position. Pt was left with call light and bed alarm on. A: pt may continue to benefit from therapy to continue educate on use of joana lift. He may also benefit from UE strengthening so that he may assist with postural alignment if necessary. P: continue per plan of care.
--- NOTE | 2016-08-19 16:08 | OT.PROG ---
Progress Note Progress Note: S: pt was in better spirits this afternoon, reports that his kids were coming up to see him. O: pt was seen in his room in the p.m. Him and were educated/practiced more transfers in and out of bed using joana lift. Pt's completed both transfer this afternoon safely. Continue to supervise joana lift transfers. A: pt may continue to benefit from therapy to increase UE strength to assist with postural alignments in chair/bed if necessary. has showed good comprehension of joana lift. P: continue to educate and practice joana lift transfers with .
[2016-08-20] MEDS: CHOLECALCIFEROL 1000 IU TABLET PO SCH (06:02)
[2016-08-20] MEDS: ASPIRIN EC 81 MG TABLET PO SCH (06:02)
[2016-08-20] MEDS: GABAPENTIN 300 MG CAPSULE PO SCH ×3 (06:03→17:46)
[2016-08-20] MEDS: ALLOPURINOL 300 MG TABLET PO SCH (06:03)
[2016-08-20] MEDS: ENOXAPARIN SODIUM 40 MG/0.4 ML SYRINGE SUBCUT SCH (06:03)
[2016-08-20] MEDS: OXYCODONE IR PO SCH ×3 (06:04→17:47)
[2016-08-20] MEDS: Meloxicam Tab 7.5 MG TABLET PO SCH (09:07)
--- NOTE | 2016-08-20 10:40 | PT.PROG ---
Progress Note Progress Note: S: Pt reports that he has L distal residual limb and groin pain 2/ that resolves with sidelying. O: Treatment consisted of: Bed mobility of rolling 5x each side, green theraband resisted elbow flexion and extension 20x ea UE, mini sit-ups 20x, supine hip abduction/adduction 15x ea LE, green thraband resisted around the clock 30". A: Pt tolerated theraputic exercises well today at a self-selected pace with frequent rest breaks. P: Continue per POC to address established goals and objectives.
[2016-08-20] MEDS: NYSTATIN 15 GM POWDER TOPICAL PRN (10:55)
--- NOTE | 2016-08-20 14:15 | OT AM DAY ---
Diagnosis : Left Above the Knee Amputation AM - Occupational Therapy S: The patient reports that he is willing to get into his power chair with the slide board. O: Today the therapist assisted the patient in coming from a reclined to supine position to sitting with max assist. While sitting in bed we worked on dressing skills; the patient needed max assist to keep his balance to don shirt. The patient required max assist to place shirt overhead. With the therapist holding the patient in an upright position, the patient was able to don the right arm with min assist and the left arm with mod assist. The patient requires max assist x2 in order to complete bed mobility. He is having a lot of difficulty placing the slide board underneath his leg. Once we did place the slide board underneath his leg, the patient required max assist and the use of his right upper extremity and the use of a gonzález to pull himself along his chair to transfer. Once in chair we worked on some mobility; the patient requires max assist in order to move within his chair. A: The patient requires max assist in order to complete ADLs and functional transfers. P: Continue seeing patient BID during the week and one time per day over the weekend for upper extremity strengthening, ADLs, and overall functional mobility. MTDD
[2016-08-21] MEDS: ENOXAPARIN SODIUM 40 MG/0.4 ML SYRINGE SUBCUT SCH (05:15)
[2016-08-21] MEDS: GABAPENTIN 300 MG CAPSULE PO SCH (05:16)
[2016-08-21] MEDS: CHOLECALCIFEROL 1000 IU TABLET PO SCH (05:16)
[2016-08-21] MEDS: OXYCODONE IR PO SCH ×5 (05:16→23:41)
[2016-08-21] MEDS: ASPIRIN EC 81 MG TABLET PO SCH (05:16)
[2016-08-21] MEDS: ALLOPURINOL 300 MG TABLET PO SCH (05:16)
--- NOTE | 2016-08-21 08:37 | PDOC(PROG) ---
Date and Time of Service: 08/21/2016 8:33 AM Interval History: Subjective Patient said he is doing okay, pain seemed to be controlled after cutting back on the dosage of his pain medication. He said he's been on pain medication for a long time for peripheral neuropathy and since he had his surgery he wants to try to cut back on the dosage of his pain medication. He is still having some pain in the groin area on the left side it's mainly to touch. Complaining also from some blurred vision and he attributed that to gabapentin he said he was taking it before and he had the same issue so he cut back to twice a day and that seemed to help. Objective : Data - Labs CBC and BMP: 08/15/16 15:02 08/15/16 15:02 Objective : Exam - General General Appearance: No Acute Distress, Cooperative, Obese - Head Head Exam: Normal Inspection - Eye Eye Exam: Normal Appearance - ENT ENT Exam: Normal Exam - Neck Neck Exam: Normal Inspection - Respiratory Respiratory Exam: Clear to Auscultation - Bilaterally - Cardiovascular Cardiovascular Exam: RRR - GI/Abdominal GI/Abdominal Exam: Normal Bowel Sounds, Non Tender, Non Distended, Soft - Rectal Rectal Exam: Deferred - External Exam: Deferred - Extremities Additional Extremities Exam Details: [id number] amputation bilateral. The wound on the left seemed to be clean. - Neurological Neurological Exam: Alert, Oriented x 3 - Psychiatric Psychiatric Exam: Normal Affect - Integumentary Integumentary Exam: Normal Color Assessment and Plan - Patient Problems (1) Above knee amputation of left lower extremity Current Visit: Yes Status: Acute Comment: Continue PT and OT. Will talk to the corporate event planner tomorrow as he has an appointment on with orthopedic and we'll see what we can arrange for him. (2) Chronic pain syndrome Current Visit: Yes Status: Acute Comment: Recurrent pain medication. (3) Blurred vision Current Visit: Yes Status: Acute Comment: He is attributing that to the gabapentin as this symptom happened to him before so we'll cut back on the dosage. And see what happens (4) DVT prophylaxis Current Visit: No Status: Acute Comment: He is on Lovenox Photo / Body Diagrams - Uploaded Photos Uploaded Photos:
[2016-08-21] MEDS: Meloxicam Tab 7.5 MG TABLET PO SCH (09:21)
--- NOTE | 2016-08-21 10:01 | PT.PROG ---
Progress Note Progress Note: S: Patient reports that his leg pain is minimal to none this morning. He states that he has had his pain medication this morning but this does not usually decrease his leg pain. He notes that he will be getting a follow up ultrasound on Tuesday 08/22. Pt. also reports that he has a doctors appointment in [place] on to get his stitches out. O: Treatment consisted of: hip ABD X10ea, Hip ADD X10 ea, hip flexion X 10 ea, bicep curls X 10 ea Blue tb, IR X 10 ea blue tb, ER X10 ea blue tb. A: Patient was able to perform all exercises with minimal difficulties; he had some c/o L shoulder pain with IR/ER exercises. Patient expressed some concern that doing too many leg exercises would increase his leg pain. P: Continue per POC.
[2016-08-21] MEDS ORDERED: GABAPENTIN 300 MG CAPSULE PO SCH (21:00)
[2016-08-22] MEDS: ALLOPURINOL 300 MG TABLET PO SCH (05:16)
[2016-08-22] MEDS: ENOXAPARIN SODIUM 40 MG/0.4 ML SYRINGE SUBCUT SCH (05:16)
[2016-08-22] MEDS: OXYCODONE IR PO SCH ×3 (05:17→17:30)
[2016-08-22] MEDS: GABAPENTIN 300 MG CAPSULE PO SCH ×2 (05:17→17:29)
[2016-08-22] MEDS: CHOLECALCIFEROL 1000 IU TABLET PO SCH (05:17)
[2016-08-22] MEDS: ASPIRIN EC 81 MG TABLET PO SCH (05:17)
[2016-08-22] MEDS: Ondansetron ODT Tab 4 MG TAB PO PRN (05:20)
[2016-08-22 07:46] LABS: HEMATOCRIT 31.2 % (42.0-52.0); HEMOGLOBIN 9.7 g/dL (14.0-18.0); MEAN CORPUSCULAR HEMOGLOBIN 27.3 PG (27-31); MEAN CORPUSCULAR HGB CONC 31.1 g/dL (33-37); MEAN CORPUSCULAR VOLUME 87.9 FL (80-90); MEAN PLATELET VOLUME 10.1 FL (7.4-12.2); RED BLOOD COUNT 3.55 10^6/uL (4.70-6.10)
[2016-08-22 07:53] LABS: BLOOD UREA NITROGEN 18 mg/dL (7-22); CALCIUM 8.6 mg/dL (8.7-10.7); EST GLOMERULAR FILTRATION > 60 (>60 ml/min/1.73m(2))
--- NOTE | 2016-08-22 09:34 | DI ---
ULTRASOUND OF THE LEFT THIGH, 08/22/2016 7:00 AM: Clinical History: Fluid collection in the adductor muscle. Evaluation for abscess formation. Previous Exam: A venous Doppler ultrasound exam from 08/17/2016, which also involved scanning the adam on of the adductor muscles. Scans through the proximal thigh all the way to the above knee amputation stump are performed in mult iple projections with the high-resolution linear ray ultrasound probe. Color Doppler ultrasound was u tilized. No abscess formation is identified. There is edema in the subcutaneous fat that is most prevalent tow [place] the stump at the surgical site. Scans of the adductor muscles where the patient complained of meme n on the previous study show no evidence of an abnormal fluid collection. The muscle tissue is slight ly echogenic in this probably is due to either to edema in the muscle or possible atrophy of the musc le with fatty replacement. Readin. There is no evidence of an abscess formation in the left thigh especially in the area of the addu ctor muscles. 2. The increased echogenicity in the adductor muscle group may be secondary either to edema or possi harrison muscle atrophy with fatty replacement.
[2016-08-22] MEDS: Meloxicam Tab 7.5 MG TABLET PO SCH (09:37)
--- NOTE | 2016-08-22 11:57 | OT.PROG ---
Progress Note Progress Note: S: pt refused therapy today twice in the morning. The first time entering his room he refused due to his not being present, and the 2nd time he refused due to being to late in the morning.
--- NOTE | 2016-08-22 11:57 | PT.PROG ---
Progress Note Progress Note: S. Patient states that his left leg is hurting after ultrasound this morning. He reports he still has back pain however less intense. O. Patient performed exercises in the form of; hip abduction/adduction, Flexion/ extension, (right only), glute squeezes, abdomen squeezes, side bending and mini sit ups x 15. Patient was left in bed with alarm and call light. A. Patient tolerated hip exercises well however was unable to perform exercises on the left, core exercises continue to be hard for him,he requires verbal cues to breathe during exercises, Patient continues to struggle with pain in his low back and left leg. Patient would continue to benefit from skilled therapy to increase strength, and independence with transfers. P. Continue POC.
[2016-08-22] MEDS: Linaclotide Cap 290 MCG CAPSULE PO SCH (14:56)
--- NOTE | 2016-08-22 16:27 | OT.PROG ---
Progress Note Progress Note: S: pt reports pain in back and some phantom pain. He wants to go home as soon as he can. He reports that he has a Dr. ureña on . O: pt was seen in the P.m. and was present to assist with joana lift transfer to increase her comfort with transfers. Pt needed to be repositioned in chair x2 man max A once in therapy. Pt returned to his room after PT completed strengthening activity. Once again transferred with joana lift. A: pt lacks UE strength to even reposition himself in w/c. Although have witnessed pt transfer with slide board, her prefers the joana lift. Continue to work with d/c planner internship and pt/pt family for d/c home. May work best for to d/c on . P: continue per plan of care.
--- NOTE | 2016-08-22 16:45 | PT.PROG ---
Progress Note Progress Note: S. Patient stated that he would do arm exercises however he did not want to do any other exercises this afternoon. O. Patient wheeled to the therapy gym where he used the arm bike x 6 minutes then performed exercises in the form of biceps, triceps, horizontal abduction, flexion, extension all with red theraband 2x5 bilaterally. Patient was left with OT for further therapy. A. Patient struggles with pain in his right shoulder and was unable to perform more exercises, he continues to struggle with transfers and would continue to benefit from skilled therapy at this time. P. Continue POC, training for joana lift before discharged home.
[2016-08-23] MEDS: OXYCODONE IR PO SCH ×5 (00:05→23:17)
[2016-08-23] MEDS: ENOXAPARIN SODIUM 40 MG/0.4 ML SYRINGE SUBCUT SCH (05:12)
[2016-08-23] MEDS: ASPIRIN EC 81 MG TABLET PO SCH (05:13)
[2016-08-23] MEDS: CHOLECALCIFEROL 1000 IU TABLET PO SCH (05:13)
[2016-08-23] MEDS: ALLOPURINOL 300 MG TABLET PO SCH (05:13)
[2016-08-23] MEDS: GABAPENTIN 300 MG CAPSULE PO SCH ×2 (05:13→18:00)
[2016-08-23] MEDS: Meloxicam Tab 7.5 MG TABLET PO SCH (08:39)
--- NOTE | 2016-08-23 12:08 | PT.PROG ---
Progress Note Progress Note: S. Patient stated that he is feeling a little better today. He is concerned about transferring into his car. O. Patient performed trunk rotations x 4 then transferred with Jone lift to his chair then performed slide board transfer to his car and back to his chair. Patient transferred back to bed with Jone lift and was left in bed with alarm and call light. A. Patient was able to perform car transfer with min assist by his , they both agreed that it was much easier than they were expecting. Patient would continue to benefit from skilled therapy to increase strength, and mobility before going home. P. Continue POC.
--- NOTE | 2016-08-23 15:53 | PT.PROG ---
Progress Note Progress Note: S. Patient agreed to perform exercises in bed this afternoon. He reports his back is very sore after staying in his chair so long this morning. O. Patient performed supine exercises in the form of; mini sit ups, side bending , abdominal squeezes, glute squeezes, hip flexion/extension, abduction/ adduction (to neutral), all x 10 bilaterally. Patient was left in bed with alarm and call light. A. Patient tolerated exercises fair this afternoon, he continues to struggle with pain, weakness and immobility, Patient would continue to benefit from skilled therapy to assist with less dependent transfers. P. Continue POC.
--- NOTE | 2016-08-23 16:52 | OT.PROG ---
Progress Note Progress Note: S: pt declined getting out of bed this afternoon, stating he was up in his w/c for to long and now his back hurts. Pt/ report joana lift may not be there until mon/monday. they also report that he wants to try slide board transfer in preparation for going home soon since joana lift will not be available. Pt also agreed to do a bed bath, refused to go to shower. O: pt was seen in his room, completing UE ther ex with RTB in shoulder flex/ext , bicep flex, tricep ext and rows all x20 to increase strength to assist with slide board transfers. A: pt needs to become more efficient with slide board transfer in preparation for home d/c incase joana lift does not arrive. pt needs to become more motivated for therapy. P: continue per plan of care.
[2016-08-24] MEDS: ENOXAPARIN SODIUM 40 MG/0.4 ML SYRINGE SUBCUT SCH (05:15)
[2016-08-24] MEDS: CHOLECALCIFEROL 1000 IU TABLET PO SCH (05:16)
[2016-08-24] MEDS: OXYCODONE IR PO SCH ×4 (05:16→23:57)
[2016-08-24] MEDS: ALLOPURINOL 300 MG TABLET PO SCH (05:16)
[2016-08-24] MEDS: GABAPENTIN 300 MG CAPSULE PO SCH ×2 (05:17→17:34)
[2016-08-24] MEDS: ASPIRIN EC 81 MG TABLET PO SCH (05:17)
[2016-08-24] MEDS: Meloxicam Tab 7.5 MG TABLET PO SCH (10:27)
--- NOTE | 2016-08-24 12:08 | PT.PROG ---
Progress Note Progress Note: S. Patient stated that he would like to go to the therapy gym to practice chair to bed transfers. O. Patient's performed Jone lift transfer to his power chair and he wheeled to the therapy gym where he performed slide board transfer to the table and back to his chair. He was left with OT for further therapy. A. Patient was able to perform transfers and was less concerned about transfers after practicing. He and his were able to perform transfers with min assist by therapist. Patient would continue to benefit from skilled therapy to decrease dependence on transfers and increase strength. P. Continue POC.
--- NOTE | 2016-08-24 12:17 | DCSUMMARY ---
Hospitalization Summary Admit Date: 08/11/16 Discharge Date: 08/25/16 Hospital Course: Discharge diagnoses 1. Status post recent above-knee left lower leg amputation 2. History of above-knee right lower amputation 3. Peripheral vascular disease 4. Peripheral neuropathy 5. History of hypertension 6. Chronic pain syndrome 7. Low testosterone 8. Midlumbar dextroscoliosis secondary to right lateral subluxation of L2 on L3 with erosive changes of the inferior left lateral half of L2 and superior posterior half of body of L3 9. anterior and posterior fusion at L4-L5 and L5-S1 without canal or neural foraminal stenosis. 10. Small bilateral effusions larger on the right than the left with atelectasis on the right. 11. Chronic compression fracture of T2 and T3 Hospital course This is a 66 years old male with medical history significant for peripheral vascular disease and peripheral neuropathy who had below knee amputation on the right side in 2016 then had above-knee amputation on the right for nonhealing arterial ulceration with infection. He started to have an ulcer on the left foot that got progressively worse and because of that he presented here and was transferred to [facility] and he ended up with above left knee amputation. Patient was transferred here for rehabilitation and was admitted to the hospital by Dr. Forde please see his note. Patient started PT and OT. Patient requested a decrease in the dosage of his pain medication and that's was done. Patient continued to complain from pain in his back so he had the a CT of the thoracic and lumbar area. CT of the lumbar area showed mid lumbar dextroscoliosis secondary to right lateral subluxation of L2 on L3 with erosive changes of the inferior lateral half of the L2 and superior and posterior half of the body of L3 indicating there is a motion at this level. Erosive changes in the left epiphyseal joints at L2-L3 as well as L1-L2. There are anterior and posterior fusion at L4 L5 and L5-S1 without canal or neural foraminal stenosis. A CT of the thoracic area showed compression fracture T2 and T3. There is osteoporosis. There is small bilateral effusions larger on the right than the left. Right lower lobe atelectasis. Although the radiologists suggest the atelectasis versus pneumonia but clinically it was a atelectasis. We continue physical therapy here then a lift was ordered for the patient to have at home to help with transfer. His was taught on using the lift we have here. I saw him later on during his hospital stay he was progressing. He had ultrasound of his stump on the left performed to look for an abscess but there was no abscess. Patient has an appointment on with his orthopedic surgeon and he requested that he be discharged home and he will go home. I did speak with with him and his and she think that she can manage at home the lift that was ordered to be used at home will be delivered on Monday but they still think they can manage at home. So we discharge the patient home and he will follow- up with his primary and his orthopedic. Laboratory Results 08/12/16 08/13/16 08/15/16 Range/Units 05:26 06:01 15:02 WBC 16.14 H 14.00 H (4.8-10.8) 10^3/uL RBC 2.98 L 3.54 L (4.70-6.10) 10^6/uL Hgb 8.1 L 9.6 L (14.0-18.0) g/dL Hct 25.7 L 30.8 L (42.0-52.0) % MCV 86.2 87.0 (80-90) FL MCH 27.2 27.1 (27-31) PG MCHC 31.5 L 31.2 L (33-37) g/dL RDW Std Deviation 47.0 48.0 (39-50) fL RDW Coeff of Darius 15.5 H 15.6 H (11.5-14.5) % Plt Count 430 H 535 H (140-350) 10*3/uL MPV 9.2 8.9 (7.4-12.2) FL Immature Gran % (Auto) 0.9 (0-5) % Neut % (Auto) 63.4 (50-80) % Lymph % (Auto) 18.5 (10-50) % [place] % (Auto) 7.4 (5-15) % Eos % (Auto) 9.1 H (0-8) % Baso % (Auto) 0.7 (0-1) % Immature Gran # (Auto) 0.15 10*3/UL Neut # (Auto) 10.23 10*3/UL Lymph # (Auto) 2.98 10*3/uL [place] # (Auto) 1.20 H (0.3-0.8) 10*3/UL Eos # (Auto) 1.47 10*3/UL Baso # (Auto) 0.11 10*3/UL WBC Morphology Comment Normal morphology (NORM) Plt Morphology Comment Normal morphology (NORM) RBC Morph Comment Normal morphology (NORM) Sodium 138 136 (135-145) meq/L Potassium 4.0 4.0 (3.8-5.2) meq/L Chloride 107 104 (98-112) meq/L Carbon Dioxide 27 25 (23-33) meq/L Anion Gap 4 L 7 (5-20) BUN 12 12 (7-22) mg/dL Creatinine 0.7 0.7 (0.70-1.50) mg/dL Estimated GFR > 60 > 60 (>60 ml/min/1.73m(2)) BUN/Creatinine Ratio 17.14 17.14 (6-20) Glucose 81 97 (78-110) mg/dL Calculated Osmolality 284.0 281.0 (267-292) mOsm/kg Calcium 8.6 L 8.6 L (8.7-10.7) mg/dL Iron 24 L (49-181) UG/DL TIBC 176 L (261-462) ug/dL % Saturation 13.63 L (14-50) % Total Bilirubin 0.2 L (0.3-1.2) mg/dL AST 20 L (21-57) IU/L ALT 30 (21-72) IU/L Alkaline Phosphatase 72 (38-126) IU/L Total Protein 5.5 L (6.1-8.0) g/dL Albumin 2.3 L (3.5-4.8) g/dL Globulin 3.2 (2.50-4.10) g/dL Albumin/Globulin Ratio 0.70 L (1.3-2.0) mg/g Lipase 33 (23-300) IU/L Total Testosterone 63 L (240-950) ng/dL Free Testosteron ng/dl 1.13 L (3.47-13.0) ng/dL Bioavail Testosterone 3.4 L (40-168) ng/dL 08/22/16 Range/Units 07:25 WBC 11.66 H (4.8-10.8) 10^3/uL RBC 3.55 L (4.70-6.10) 10^6/uL Hgb 9.7 L (14.0-18.0) g/dL Hct 31.2 L (42.0-52.0) % MCV 87.9 (80-90) FL MCH 27.3 (27-31) PG MCHC 31.1 L (33-37) g/dL RDW Std Deviation 49.3 (39-50) fL RDW Coeff of Darius 15.9 H (11.5-14.5) % Plt Count 407 H (140-350) 10*3/uL MPV 10.1 (7.4-12.2) FL Immature Gran % (Auto) (0-5) % Neut % (Auto) (50-80) % Lymph % (Auto) (10-50) % [place] % (Auto) (5-15) % Eos % (Auto) (0-8) % Baso % (Auto) (0-1) % Immature Gran # (Auto) 10*3/UL Neut # (Auto) 10*3/UL Lymph # (Auto) 10*3/uL [place] # (Auto) (0.3-0.8) 10*3/UL Eos # (Auto) 10*3/UL Baso # (Auto) 10*3/UL WBC Morphology Comment (NORM) Plt Morphology Comment (NORM) RBC Morph Comment (NORM) Sodium 135 (135-145) meq/L Potassium 4.9 (3.8-5.2) meq/L Chloride 106 (98-112) meq/L Carbon Dioxide 25 (23-33) meq/L Anion Gap 4 L (5-20) BUN 18 (7-22) mg/dL Creatinine 0.6 L (0.70-1.50) mg/dL Estimated GFR > 60 (>60 ml/min/1.73m(2)) BUN/Creatinine Ratio 30.00 H (6-20) Glucose 78 (78-110) mg/dL Calculated Osmolality 280.0 (267-292) mOsm/kg Calcium 8.6 L (8.7-10.7) mg/dL Iron (49-181) UG/DL TIBC (261-462) ug/dL % Saturation (14-50) % Total Bilirubin (0.3-1.2) mg/dL AST (21-57) IU/L ALT (21-72) IU/L Alkaline Phosphatase (38-126) IU/L Total Protein (6.1-8.0) g/dL Albumin (3.5-4.8) g/dL Globulin (2.50-4.10) g/dL Albumin/Globulin Ratio (1.3-2.0) mg/g Lipase (23-300) IU/L Total Testosterone (240-950) ng/dL Free Testosteron ng/dl (3.47-13.0) ng/dL Bioavail Testosterone (40-168) ng/dL Discharge instruction Diet regular Activity as started Medications Home Medications Medication Instructions Recorded Confirmed Type Cholecalciferol (Vitamin D3) 1 cap PO QD #90 cap 04/07/14 08/20/16 Clinic [Vitamin D3] Aspirin [Aspirin EC] 1 tab PO QD #90 tab 07/13/15 08/20/16 Clinic Testosterone Cypionate 0.5 ml IM every 2 weeks #0 ml 04/13/16 08/20/16 Clinic Allopurinol 0.5 tab PO QD #30 tab 05/24/16 08/20/16 Clinic Ipratropium [place] 1 - 2 spr LUCY AC PRN #1 spray 05/26/16 08/20/16 Clinic Levalbuterol Tartrate [XOPENEX HFA] 2 puff INH Q4-6H PRN #2 inh 06/09/16 Clinic Triamcinolone Acetonide 60 gm TP QID PRN #3 tube 08/02/16 08/20/16 Clinic Gabapentin [Neurontin] 300 mg PO 0600,1800 cap 08/24/16 Rx Oxycodone HCl [Oxaydo] 60 mg PO Q6H #2 08/24/16 08/20/16 Rx Follow-up with his primary in 1-2 weeks, with orthopedic as scheduled Condition at discharge was stable for discharge Exam - Vitals Vital Signs: Vital Signs Temperature 97.4 F Temperature Source Temporal Artery Scan Pulse Rate [Apical] 64 Pulse Rate [Pulse Oximeter] 53 Respiratory Rate 20 Blood Pressure [Right Arm] 138/59 Blood Pressure [Left Arm] 115/52 Pulse Ox 92 Oxygen Flow Rate 2 Oxygen Delivery Method Room Air Height 5 ft 10 in Weight 196 lb 8 oz - General General Appearance: POSITIVE: No Acute Distress, Cooperative, Obese - Head Head Exam: POSITIVE: Normal Inspection, Atraumatic - Eye Eye Exam: POSITIVE: Normal Appearance - ENT ENT Exam: POSITIVE: Normal Exam - Neck Neck Exam: POSITIVE: Normal Inspection - Respiratory Respiratory Exam: POSITIVE: Clear to Auscultation - Bilaterally - Cardiovascular Cardiovascular Exam: POSITIVE: RRR - GI/Abdominal GI/Abdominal Exam: POSITIVE: Normal Bowel Sounds, Non Tender, Non Distended, Soft - Extremities Additional Extremities Exam Details: Bilateral below knee amputations. would looks clean. - Neurological Neurological Exam: POSITIVE: Alert, Oriented x 3, CN II-XII Intact, Moves All Extremities Equally Patient Problems - Patient Problem List (1) Above knee amputation of left lower extremity Current Visit: Yes Status: Acute (2) Chronic pain syndrome Current Visit: Yes Status: Acute (3) Blurred vision Current Visit: Yes Status: Acute (4) DVT prophylaxis Current Visit: No Status: Acute
--- NOTE | 2016-08-24 16:36 | OT.PROG ---
Progress Note Progress Note: S: pt still reports back pain, and says he is going home tomorrow morning. O: pt was seen in the a.m. and completed x2 slide board transfers with MOd Ind. the first transfer over to mat table was not very smooth although was completed. Transfer from mat table to w/c was much better and positioned himself in w/c with mod Ind. Pt was accompanied by who completed joana transfer with supervision from therapy as we continue to educate and train her for proper transfers once home. pt was left in supine position with call light within reach and bed alarm on. A: pt may continue to benefit from therapy this afternoon to work on slide board transfers. P: continue per plan of care.
--- NOTE | 2016-08-24 16:36 | PT.PROG ---
Progress Note Progress Note: S. Patient stated that he would go to the therapy gym to practice transfers. O. Patient's performed Jone lift transfer then wheeled to the therapy gym where he performed transfer from power chair to mat table with slide board and jone sling. He was able to perform the transfer with min assist from his . Patient attempted to perform core exercises while on the mat table however was unable to due to back pain, Patient transferred back to his power chair and was left with OT for further therapy. A. Patient continues to struggle with pain in his back and left limb. He would continue to benefit from skilled therapy to increase strength and independence on transfers. Patient and agreed that they both feel more comfortable with slide board transfers after working on them today. P. continue POC.
--- NOTE | 2016-08-24 16:43 | OT.PROG ---
Progress Note Progress Note: S: pt states he is ready to go home tomorrow and he understands it will be a long day tomorrow as he has Dr. ureña. O: pt was seen in his room in the p.m and assisted with joana transfers. Transferred downstairs to therapy in w/c and completed x2 slide board transfers. He completed these much better than this morning. He completed ther ex with RTB in bicep flex, shoulder flex/ext and tricep ext x15 with BUE to increase strength to assist with transfers. A: pt's transfers much improved since this morning. assists and supervises well. She completes joana lift transfers well and displays ability to complete once at home. Pt may benefit from Home health. P: continue per plan of care, with d/c in morning.
[2016-08-25] MEDS: OXYCODONE IR PO SCH (06:03)
[2016-08-25] MEDS: ASPIRIN EC 81 MG TABLET PO SCH (06:03)
[2016-08-25] MEDS: CHOLECALCIFEROL 1000 IU TABLET PO SCH (06:04)
[2016-08-25] MEDS: GABAPENTIN 300 MG CAPSULE PO SCH (06:04)
[2016-08-25] MEDS: ENOXAPARIN SODIUM 40 MG/0.4 ML SYRINGE SUBCUT SCH (06:04)
[2016-08-25] MEDS: ALLOPURINOL 300 MG TABLET PO SCH (06:04)
[2016-08-25 06:38] VITALS: RESP 17; TEMP 97.4
== END 2016-08-25 08:05 | disposition home or self-care (01) | DRG 945 ==
LOC: MED/SURG 11:00
PROVIDERS: ADMIT Internal Medicine; ATTEND Internal Medicine
PROC: F07Z8YZ Transfer Training Treatment using Other Equipment (ICD-10-PCS; principal; 2016-08-11)
DX: Z89.612 Acquired absence of left leg above knee (principal); J90 Pleural effusion, not elsewhere classified; Z89.611 Acquired absence of right leg above knee; I73.9 Peripheral vascular disease, unspecified; G62.9 Polyneuropathy, unspecified; I10 Essential (primary) hypertension; G89.4 Chronic pain syndrome; M41.86 Other forms of scoliosis, lumbar region; M43.27 Fusion of spine, lumbosacral region; M48.54XS Collapsed vertebra, not elsewhere classified, thoracic region, sequela of fracture
CPT/HCPCS: 36415; 72128; 72131; 76882; 80048; 80053; 83540; 83550; 83690; 84402; 84403; 85025; 85027; 93971; 94761; 97010; 97110; 97163; 97166; 97530; 97535; J1650

== ENCOUNTER → 2016-08-31 | Outpatient (CLI) | payer OTHER, BC | LOC: MMPC 11:11 | PROVIDERS: ATTEND Internal Medicine | DX: E11.9 Type 2 diabetes mellitus without complications (principal); Z89.611 Acquired absence of right leg above knee; Z89.612 Acquired absence of left leg above knee; E29.1 Testicular hypofunction; E66.01 Morbid (severe) obesity due to excess calories; J44.9 Chronic obstructive pulmonary disease, unspecified; F17.219 Nicotine dependence, cigarettes, with unspecified nicotine-induced disorders; M47.816 Spondylosis without myelopathy or radiculopathy, lumbar region; I73.9 Peripheral vascular disease, unspecified; D75.1 Secondary polycythemia | CPT/HCPCS: 99214; G0463; J1071 ==

== ENCOUNTER → 2016-09-07 | Outpatient (CLI) | payer OTHER, BC ==
--- NOTE | 2016-09-07 11:08 | DI ---
XR L-SPINE MIN 4 VW,09/07/2016 10:14 AM: Clinical History: Low back pain Previous Exam: CT lumbar spine performed August 16, 2016 Findings: AP lateral, flexion and extension views are obtained of the lumbar spine. The there are stable postsu rgical changes. There is a wedge deformity of the second lumbar vertebral body. There is sclerosis an d endplate osteophyte formation. There are stable postsurgical changes consistent with posterior scre w and plate fixation. There is no significant change on flexion or extension with no evidence of inst ability. A large amount of stool is seen throughout the colon. Impression: No significant change since the prior CT scan.
== END ==
LOC: RAD 10:10
PROVIDERS: ATTEND Neurological Surgery
DX: M54.5 Low back pain (principal); M47.816 Spondylosis without myelopathy or radiculopathy, lumbar region
CPT/HCPCS: 72110

== ENCOUNTER → 2016-09-08 | Outpatient (CLI) | payer OTHER, BC | LOC: MMPC 10:00 | PROVIDERS: ATTEND Physician Assistant | DX: M47.816 Spondylosis without myelopathy or radiculopathy, lumbar region (principal); M54.5 Low back pain; G89.29 Other chronic pain; Z98.1 Arthrodesis status | CPT/HCPCS: 99204; G0463 ==

== ENCOUNTER → 2016-09-14 | Outpatient (CLI) | payer OTHER, BC ==
--- NOTE | 2016-09-14 13:02 | DI ---
CT BONE DENSITOMETRY OF THE SPINE AND HIP, 09/14/2016 9:57 AM : Clinical History: Cervical spondylosis Previous Exam: August 16, [address] (QCT) Bone Mineral Densitometry: The [place] scans are normal. Low dose scans are obtained of the lumbar spine and sampling is obtaine d through the midbodies of L1 and L2. The average volumetric bone mineral density (BMD) of the lumbar spine is 90.9 mg/cm3. This value corresponds to a volumetric T-score of -3.1 and Z-score of -0.9 as assessed by this BMD software. Volumetric 3D QCT and areal DEXA T-scores and Z-scores are not directl y equivalent. Using the [employer]'s (ACR) volumetric QCT trabecular spine BMD con version table that is closely equivalent to the areal WHO diagnostic categories, this patient falls i nto the category of osteopenia. CT X-Ray Absorptiometry (CTXA) Hip Bone Mineral Densitometry: Low dose scans are obtained through the hips for assessment of bone mineral density (BMD) and T-score s and Z-scores of the left hip. Total hip BMD: 0.734 mg/cm2 T-score: -1.6 Z-score: Femoral neck BMD: 0.714 mg/cm2 T-score: -0.73 Z-score: Note: T-scores of the spine and hip exhibit discordant readings approximately 40% of the time in eval uated patients. Changes in BMD determined either by volumetric QCT or areal DEXA are more reliable in assessment of change in a patient's BMD status rather than changes in T-scores. The CTXA hip CT bone mineral density measurements and the resultant T-scores and Z-scores are exact hip DEXA scan equival ents. The femoral neck T-score can be used in the WHO's FRAX program for assessing an untreated patie nt's 10 year fracture risk. READING: Osteopenia of the lumbar spine and left hip.
--- NOTE | 2016-09-14 13:02 | DI ---
LUMBAR MYELOGRAM, 09/14/2016 9:57 AM: Clinical History: Thoracic back pain Previous Exam: None at this facility. Informed signed consent was obtained prior to the procedure. The patient was informed of benefits and risks, to include but not be limited, to allergies to medications (skin preparation agents, local an esthetic, and contrast agent), infection, and "spinal" headaches. The lower back was prepped with Betadine solution and alcohol. 1% lidocaine without epinephrine was u sed for intradermal and subcutaneous local anesthesia. Under fluoroscopic guidance, a 22 gauge spinal needle was then introduced into the spinal canal from the left paraspinal approach at the level of L 4. A single pass was performed and this revealed droplets of clear colorless CSF. 10 ml of Omipaque 300 was injected into the spinal canal with fluoroscopic monitoring. Spot films of the lumbar spine were obtained followed by a cross table lumbar spine view. The patient tolerated the procedure well and wa s transferred to the CT scan suite for the CT myelogram. Following the CT scan, the patient was observed in the department for approximately 1 hour. 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 The patient was also instructed to push fluids for the remainder of the day and to sleep on an extra pillow with the head up if possible. The patient was advised to watch for signs of an infection (incl uding but not limited to redness, swelling, fever) or an unusually severe headache. The patient was i nstructed to either contact the x-ray department directly or to report to the Emergency Room immediat wiley if problems arise. Reading: Successful myelogram. CT pending.
--- NOTE | 2016-09-14 14:29 | DI ---
CT THORACIC SPINE W/CONTRAST,09/14/2016 9:57 AM: Clinical History: Thoracic back pain. Previous Exam: None at this facility. Findings: Multiple helically acquired CT images are obtained through the thoracic spine following the intrathec al administration of contrast. There are degenerative changes noted of the lower cervical spine consistent with facet arthropathy. The lungs are clear. A few peripheral vascular calcifications are seen. Coronary artery calcifications are also seen. There is levoscoliosis of the thoracic spine centered at the T8 level. Peripheral vascular calcifications are seen involving the carotid arteries. There is vacuum disc phenomenon at multiple levels at the thoracolumbar junction. The lungs are clear. There is no evidence of infiltrate nor effusion. The upper abdomen is unremarkable. Visualized portions of the spinal cord are normal. Individual intervertebral disc spaces: T1/2: No significant stenosis. T2/3: No significant stenosis. T3/4: No significant stenosis. T4/5: No significant stenosis. T5/6: No significant stenosis. T6/7: There is some mild facet hypertrophy without significant stenosis. T7/8.: There is a mild facet hypertrophy without significant stenosis. T8/9: No significant stenosis. T9/10: Mild degenerative changes with mild bilateral neural foraminal narrowing. T10/11: There is facet arthropathy at this level contributing to mild central canal stenosis and mild bilateral neural foraminal narrowing. T11/12: There is a broad-based disc bulge and some facet hypertrophy contributing to mild central can al stenosis and mild bilateral neural foraminal narrowing. Impression: T9/10: Mild degenerative changes with mild bilateral neural foraminal narrowing. T10/11: There is facet arthropathy at this level contributing to mild central canal stenosis and mild bilateral neural foraminal narrowing. T11/12: There is a broad-based disc bulge and some facet hypertrophy contributing to mild central can al stenosis and mild bilateral neural foraminal narrowing.
--- NOTE | 2016-09-14 14:42 | DI ---
CT LUMBAR SPINE W/CONTRAST,09/14/2016 9:57 AM: Clinical History: Low back pain. Previous Exam: August 16, 2016 Findings: Multiple helically acquired CT images are obtained through the lumbar spine following the intrathecal administration of contrast. Visualized portions of the kidneys, spleen, adrenals and pancreas are unremarkable. Peripheral vascul ar calcifications are seen. Intra-abdominal structures are unremarkable. The urinary bladder is unrem arkable. Individual intervertebral disc spaces: L1/2: There is disc desiccation and near complete loss of intervertebral disc height with endplate os teophyte formation contributing to mild central canal stenosis. There is grade 1 retrolisthesis of L1 on L2 contributing to severe left and moderate to severe right neural foraminal narrowing. L2/3: There is disc desiccation, vacuum disc phenomenon and grade 1 retrolisthesis of L2 on L3 contri buting to severe bilateral neural foraminal narrowing and moderate central canal stenosis. L3/4: There is grade 1 retrolisthesis at this level with facet hypertrophy contributing to mild centr al canal stenosis with moderate to severe bilateral neural foraminal narrowing. L4/5: There is transpedicular fixation at this level and there is an interbody fusion device noted wi th poor bony fusion at this time. There is a broad-based disc bulge as well as some facet hypertrophy . There is no significant central canal stenosis and there is moderate bilateral neural foraminal lion rowing. L5/S1: There is disc desiccation and intervertebral disc spacer device with poor bony fusion at this time. There is also transpedicular fixation at this level. There is facet hypertrophy combining with the broad-based disc bulge to cause moderate to severe bilateral neural foraminal narrowing. Impression: L1/2: There is disc desiccation and near complete loss of intervertebral disc height with endplate os teophyte formation contributing to mild central canal stenosis. There is grade 1 retrolisthesis of L1 on L2 contributing to severe left and moderate to severe right neural foraminal narrowing. L2/3: There is disc desiccation, vacuum disc phenomenon and grade 1 retrolisthesis of L2 on L3 contri buting to severe bilateral neural foraminal narrowing and moderate central canal stenosis. L3/4: There is grade 1 retrolisthesis at this level with facet hypertrophy contributing to mild centr al canal stenosis with moderate to severe bilateral neural foraminal narrowing. L4/5: There is transpedicular fixation at this level and there is an interbody fusion device noted wi th poor bony fusion at this time. There is a broad-based disc bulge as well as some facet hypertrophy . There is no significant central canal stenosis and there is moderate bilateral neural foraminal lion rowing. L5/S1: There is disc desiccation and intervertebral disc spacer device with poor bony fusion at this time. There is also transpedicular fixation at this level. There is facet hypertrophy combining with the broad-based disc bulge to cause moderate to severe bilateral neural foraminal narrowing.
== END ==
LOC: RAD 09:48
PROVIDERS: ATTEND Neurological Surgery
DX: M54.5 Low back pain (principal); M54.6 Pain in thoracic spine; M47.812 Spondylosis without myelopathy or radiculopathy, cervical region; M47.816 Spondylosis without myelopathy or radiculopathy, lumbar region; M47.814 Spondylosis without myelopathy or radiculopathy, thoracic region; M48.06 Spinal stenosis, lumbar region; M81.0 Age-related osteoporosis without current pathological fracture; F17.200 Nicotine dependence, unspecified, uncomplicated; Z87.81 Personal history of (healed) traumatic fracture
CPT/HCPCS: 72129; 72132; 72255; 72265; 77078

== ENCOUNTER 2016-09-15 09:49 | Day surgery (SDC) | payer OTHER, BC ==
[2016-09-15] MEDS ORDERED: Iopamidol Inj 61% 50 ML VIAL IV ONE (10:00)
[2016-09-15] MEDS ORDERED: TRIAMCINOLONE ACETONIDE 40 MG/1 ML IM ONE (10:00)
[2016-09-15] MEDS ORDERED: DEXAMETHASONE SOD PHOSPHATE 4 MG/1 ML VIAL IM ONE (10:00)
[2016-09-15] MEDS ORDERED: BUPivacaine Inj 0.25% PF - 10ml vial IV ONE (10:00)
[2016-09-15 11:24] VITALS: RESP 18
--- NOTE | 2016-09-15 12:11 | GEN.OPNOTE ---
Interlaminar LAURA Procedure: Interlaminar Epidural Steriod Injection Procedure Code - Neurosurgery: 08244 : Lumbar Epidural Injection (Single) -: Consent: Rationale for procedure, nature of procedure, possible risks and benefits were discussed with the patient. Risks including allergic reaction to medications, known effects of steroid medications including transient elevation in blood sugar with aggravation of pre-existing diabetes and remote risk of aseptic necrosis of the hip. Pain at the injection site, inadvertent dural puncture with resultant in CSF leak and headache possibly requiring further treatment. Infection or bleeding with potential risk of neurologic injury with weakness, paralysis or were all reviewed with the patient who wished to proceed. Anesthesia, sedation: No intravenous access or sedation was used. Physiologic monitoring of pulse and oxygen saturation was utilized. Procedure: The patient was placed prone on the operating room table, prepped with Chloroprep and sterilely draped. The skin was anesthetized with 1% Buffered Xylocaine. Under fluoroscopic control a 22-gauge Touhy needle was advanced into the epidural space at the L34 level. Using loss-of- resistance technique the epidural space was identified. Omnipaque was injected under real- time fluoroscopy demonstrating an epidurogram. Following this 5 ml of a mixture of 40 mg triamcinolone, 10 mg dexamethasone and 3cc .25% bupivicaine was injected epidurally. AP and lateral images of the final needle placement were obtained. The needle was removed and the patient returned to the post procedure recovery room where they were monitored for any side effects. Pain assessment: Preprocedure pain []/10, post procedure pain []/10. Discharge instructions: Patient was given a pain log to be filled out and returned. A delayed response to the steroids of 2-5 days was discussed. Dx Lumbar Degenerative Disc Disease
[2016-09-15 12:12] VITALS: TEMP 98.3
== END 2016-09-15 12:15 | disposition home or self-care (01) ==
LOC: SDSC 09:49
PROVIDERS: ATTEND Pain Medicine Interventional Pain Medicine
DX: M51.36 Other intervertebral disc degeneration, lumbar region (principal)
CPT/HCPCS: 76000; J1100

== ENCOUNTER → 2016-09-30 | Outpatient (CLI) | payer OTHER, BC | LOC: MMPC 11:11 | PROVIDERS: ATTEND Internal Medicine | DX: E29.1 Testicular hypofunction (principal) | CPT/HCPCS: G0463; J1071 ==

== ENCOUNTER → 2016-10-13 | Outpatient (CLI) | payer OTHER, BC ==
[2016-10-13 13:37] LABS: BASOPHILS # (AUTO) 0.06 10*3/UL; BASOPHILS % (AUTO) 0.5 % (0-1); EOSINOPHILS % (AUTO) 6.9 % (0-8); HEMATOCRIT 41.6 % (42.0-52.0); HEMOGLOBIN 13.2 g/dL (14.0-18.0); LYMPHOCYTES # (AUTO) 2.25 10*3/uL; MEAN CORPUSCULAR HEMOGLOBIN 26.9 PG (27-31); MEAN CORPUSCULAR HGB CONC 31.7 g/dL (33-37); MEAN CORPUSCULAR VOLUME 84.9 FL (80-90); MEAN PLATELET VOLUME 9.3 FL (7.4-12.2); MONOCYTES # (AUTO) 0.69 10*3/UL (0.3-0.8); NEUTROPHILS # (AUTO) 7.72 10*3/UL; NEUTROPHILS % (AUTO) 66.9 % (50-80)
[2016-10-13 13:42] LABS: PLATELET MORPHOLOGY COMMENT NORMAL MORPHOLOGY (NORM); RBC MORPHOLOGY COMMENT NORMAL MORPHOLOGY (NORM); WBC MORPHOLOGY COMMENT NORMAL MORPHOLOGY (NORM)
[2016-10-13 13:55] LABS: BLOOD UREA NITROGEN 9 mg/dL (7-22); CALCIUM 9.2 mg/dL (8.7-10.7); CHOL/HDL RATIO 5.62 RATIO (0-4.0); EST GLOMERULAR FILTRATION > 60 (>60 ml/min/1.73m(2)); HDL CHOLESTEROL 27 mg/dL (40-150); SERUM ALBUMIN 3.2 g/dL (3.5-4.8); SERUM CHOLESTEROL 152 mg/dL (120-200)
[2016-10-13 13:58] LABS: HEMOGLOBIN A1C 5.03 % (4.2-6.0)
== END ==
LOC: LAB 13:20
PROVIDERS: ATTEND Internal Medicine
DX: E11.9 Type 2 diabetes mellitus without complications (principal); I10 Essential (primary) hypertension; D75.1 Secondary polycythemia; E66.01 Morbid (severe) obesity due to excess calories; J44.9 Chronic obstructive pulmonary disease, unspecified; I73.9 Peripheral vascular disease, unspecified; E29.1 Testicular hypofunction; M81.0 Age-related osteoporosis without current pathological fracture; F17.209 Nicotine dependence, unspecified, with unspecified nicotine-induced disorders; Z12.5 Encounter for screening for malignant neoplasm of prostate
CPT/HCPCS: 36415; 80053; 80061; 82306; 83036; 84403; 84443; 85025; G0103

== ENCOUNTER → 2016-10-14 | Outpatient (CLI) | payer OTHER, BC | LOC: MMPC 11:11 | PROVIDERS: ATTEND Internal Medicine | DX: E29.1 Testicular hypofunction (principal); M81.0 Age-related osteoporosis without current pathological fracture | CPT/HCPCS: G0463; J0897; J1071 ==

== ENCOUNTER → 2016-10-18 | Outpatient (CLI) | payer OTHER, BC ==
--- NOTE | 2016-10-19 10:39 | DI ---
SPECT/CT C-SPINE W/O CONTRAST,10/18/2016 2:15 PM: Clinical History: Cervical facet arthropathy. Previous Exam: CT lumbar spine and Thoracic spine performed September 14, 2016 Procedure note: The patient was unable to lie prone or supine on the exam table, and was therefore pl aced in the left lateral decubitus position. Findings: Multiple helically acquired CT images are obtained through the neck, chest, abdomen and pelvis from t he base of the skull through the pelvis. There are diffuse degenerative changes of the cervical spine noted with loss of intervertebral disc h eight and endplate sclerosis. There is some focal increased uptake at the base of the skull as well as involving the posterior krishna culating facets throughout the cervical spine. There is a also increased uptake involving the endplate changes of the thoracic and lumbar spine, whi ch is uniform throughout the thoracic and lumbar spine. There is also transpedicular fixation of the lower lumbar spine. There is some compression of the first and second lumbar vertebral bodies. There is loss of intervert ebral disc height with endplate sclerosis at these levels as well. The patient is status post right shoulder arthroplasty. Patient is also status post transpedicular fixation of L4-S1. The ribs are unremarkable. The lungs are clear except for some subsegmental atelectasis. Liver, spleen, kidneys, pancreas and adrenals. There is a large amount of dried stool throughout the colon. The urinary bladder is unremarkable. Degenerative changes are seen of the hips. Impression: There is some increased uptake involving the posterior articulating facets and endplates throughout t he thoracic and cervical and lumbar spine. This is worst in the lumbar spine where there is compressi on of the second lumbar vertebral body and loss of intervertebral disc height and endplate sclerosis at L2/3 and L1/2. This is worst involving the cervical spine at the C1-C3 levels.
== END ==
LOC: NM 11:12
PROVIDERS: ATTEND Physician Assistant
DX: M12.88 Other specific arthropathies, not elsewhere classified, other specified site (principal); G95.89 Other specified diseases of spinal cord; M48.56XD Collapsed vertebra, not elsewhere classified, lumbar region, subsequent encounter for fracture with routine healing; F17.200 Nicotine dependence, unspecified, uncomplicated; Z98.1 Arthrodesis status
CPT/HCPCS: 72125; 72128; 72131; A9503

== ENCOUNTER → 2016-10-21 | Outpatient (CLI) | payer OTHER, BC ==
--- NOTE | 2016-10-21 12:42 | DI ---
XR SHOULDER MIN 2VW,10/21/2016 10:45 AM: Clinical History: Right shoulder pain of unknown chronicity. Previous Exam: None at this facility. Findings: 2 views of the right shoulder are obtained, and demonstrate postsurgical changes consistent with righ t shoulder hemiarthroplasty. The adjacent right lung and chest wall are unremarkable. Impression: No significant change from prior.
== END ==
LOC: ORTHO 11:03
PROVIDERS: ATTEND Orthopaedic Surgery
DX: M25.511 Pain in right shoulder (principal); Z96.611 Presence of right artificial shoulder joint
CPT/HCPCS: 73030

== ENCOUNTER → 2016-10-31 | Outpatient (CLI) | payer OTHER, BC | LOC: MMPC 11:11 | PROVIDERS: ATTEND Internal Medicine | DX: J44.9 Chronic obstructive pulmonary disease, unspecified (principal); E77.8 Other disorders of glycoprotein metabolism; E29.1 Testicular hypofunction; K59.00 Constipation, unspecified | CPT/HCPCS: 99214; G0463; J1071 ==

== ENCOUNTER → 2016-11-11 | Outpatient (CLI) | payer OTHER, BC | LOC: MMPC 11:11 | PROVIDERS: ATTEND Internal Medicine | DX: E29.1 Testicular hypofunction (principal) | CPT/HCPCS: G0463; J1071 ==

== ENCOUNTER → 2016-11-25 | Outpatient (CLI) | payer OTHER, BC | LOC: MMPC 11:11 | PROVIDERS: ATTEND Internal Medicine | DX: E29.1 Testicular hypofunction (principal) | CPT/HCPCS: G0463; J1071 ==

== ENCOUNTER → 2016-12-09 | Outpatient (CLI) | payer OTHER, BC | LOC: MMPC 11:11 | PROVIDERS: ATTEND Internal Medicine | DX: E29.1 Testicular hypofunction (principal) | CPT/HCPCS: G0463; J1071 ==

== ENCOUNTER 2018-02-04 10:25 | Inpatient (IN) ==
[2018-02-04] MEDS ORDERED: Sodium Chloride 0.9% 1,000 ML PRIMARY IV ONE ×2 (10:51→11:55)
[2018-02-04 11:40] LABS: Hematocrit [HCT] 55.4 % (42.0-52.0); Hemoglobin [HGB] 18.7 g/dL (14.0-18.0); MEAN CORPUSCULAR HEMOGLOBIN 29.8 PG (27-31); MEAN CORPUSCULAR HGB CONC 33.8 g/dL (33-37); MEAN CORPUSCULAR VOLUME 88.4 FL (80-90); MEAN PLATELET VOLUME 10.6 FL (7.4-12.2); RED BLOOD COUNT 6.27 10^6/uL (4.70-6.10)
--- NOTE | 2018-02-04 11:40 | EKG ---
[address] [address] Measurements Intervals Jud Rate: 98 P: 39 NV: 167 QRS: 33 QRSD: 101 T: 59 QT: 320 QTc: 375 Interpretive Statements SINUS RHYTHM Compared to ECG 02/02/2018 10:47:19 First degree AV block no longer present Myocardial infarct finding no longer present Electronically Signed On 02-05-18 08:46:40 MDT by Galo Larios MD [email or web address]
[2018-02-04 11:41] LABS: BILIRUBIN,URINE MODERATE (NEG); CLARITY,URINE CLEAR (CLEAR); COLOR,URINE BROWN (Y); GLUCOSE, URINE (UA) NEGATIVE (NEG); OCCULT BLOOD,URINE NEGATIVE (NEG); PROTEIN,URINE >300 mg/dl (NEG)
[2018-02-04 11:52] LABS: RENAL EPITHELIAL CELLS,URINE RARE; URINE SAMPLE TYPE CATH SPECIMEN
[2018-02-04 11:53] LABS: BLOOD UREA NITROGEN 25 mg/dL (7-22); BUN/CREATININE RATIO 31.25 (6-20); SERUM ALBUMIN 3.6 g/dL (3.5-4.8)
[2018-02-04 11:53] LABS: URINE CASTS FEW
[2018-02-04 12:00] LABS: PLATELET MORPHOLOGY COMMENT NORMAL MORPHOLOGY (NORM); RBC MORPHOLOGY COMMENT NORMAL MORPHOLOGY (NORM); WBC MORPHOLOGY COMMENT SEE COMMENTS (NORM)
[2018-02-04 12:01] LABS: BAND NEUTROPHILS % 2 % (0-10); BASOPHILS % (MANUAL) 0 % (0-1); EOSINOPHILS % (MANUAL) 2 % (0-8); METAMYELOCYTES % 0 %; MONOCYTES % (MANUAL) 2 % (0-12); MYELOCYTES % 0 %; NEUTROPHILS % (MANUAL) 68 % (50-80); PROMYELOCYTES % 0 %
--- NOTE | 2018-02-04 13:31 | DI ---
EXAM: CT Abdomen and Pelvis With Intravenous Contrast CLINICAL HISTORY: ITS.REASON vomiting Physician Notes: Tech Comments: TECHNIQUE: Axial computed tomography images of the abdomen and pelvis with intravenous contrast. COMPARISON: Pelvic CT of 11/24/13. FINDINGS: Segmental right lower lobe atelectasis. More mild volume loss to the lingula and right middle lobe. Coronary atherosclerosis and trace pericardial fluid. The gallbladder is distended. The wall is indistinct suggesting thickening/edema. No radiopaque stones. Recommend ultrasound. The common duct is also mildly prominent, but no significant intrahepatic ductal dilation. Atrophic pancreas. No evidence of acute pancreatitis. 1 cm hypodensity to the lateral cortex of left renal mid zone. This is too small to characterize, but most likely a cyst. No hydronephrosis. Fecal retention. Several colonic diverticula without diverticulitis. Unremarkable appendix. The distal esophagus is thickened with adjacent lymph nodes and some fluid. Correlate for symptoms of esophagitis. Neoplasm is not strictly excluded. Extensive aortoiliac atherosclerosis. Severe narrowing of the common femoral arteries. No aneurysm. Diastases rectus with fatty umbilical hernia. Small fatty left inguinal hernia as well. Avascular necrosis of the left femoral head without articular collapse. No acute fracture. Chronic deformity of the L1 vertebral body which is the apex of a dextrocurvature. Lumbosacral fusion. IMPRESSION: Findings concerning for cholecystitis. Recommend ultrasound. Esophageal wall thickening should be correlated for symptoms of esophagitis. Neoplasm is not strictly excluded. Moderate fecal retention. Severe common femoral artery narrowing. Segmental RLL atelectasis and incidental findings as detailed above.
--- NOTE | 2018-02-04 14:52 | PDOC ---
HPI - History of Present Illness Date of Service: 02/04/18 Time of Service: 16:00 Chief Complaint: Vomiting of 2 days' duration History of Present Illness: This is a 67 years old male with medical history significant for history of hypertension, chronic pain syndrome, history of gout, history of bilateral above -knee amputations and sleep apnea who presented to the hospital on Monday because of epigastric discomfort he was having pain he said that started that day it was constant and severe because of it he came into the ER had testing done and was sent home he said he didn't want to be admitted to the hospital. He started to feel nauseated after that and started to vomit multiple times on Monday and Monday yesterday he did vomit and there was a piece of asparagus he said that was present. After he vomited that the pain seemed to be gone. Last time he vomited was this morning around 6:00 am. He noticed his urine was dark and because of that he came into the ER. He is denying pain, currently he has an upset stomach he said. in the ER he had a CT of the abdomen which showed thickening of the esophagus suggestive of esophagitis and also thickening of the gallbladder possible cholecystitis. In addition his white count was elevated he was given fluids and was admitted. He denied fever at home. He said he was unable to eat much but he was able to keep some of the fluid in. He was taking his medication except the diuretic which he didn't take the last 2 days. Past Medical History Medical History: 1. History of gout Gout. 2. History of Hypertension. 3. chronic pain syndrome. 4. History of hypercholesterolemia. 5. History of peripheral neuropathy. 6. History of hypogonadism Surgical History: 1. History of bilateral above-knee amputation. 2. History of spinal lumbar fusion. 3. History of tonsillectomy. 4. History of total shoulder replacement Past Social History: He smokes a pack a day, doesn't drink, no drugs. Lives with his . Tobacco Use: Current Every Day Smoker In the Past 12 Months, Have Used or Abuse Any of the Following Substance: None Alcohol Use: None Medication / Allergies Home Medications: Home Medications 3 Medication Instructions Recorded Confirmed Type Cholecalciferol (Vitamin D3) 1 cap PO QD #90 cap 04/07/14 02/04/18 History [Vitamin D3] Aspirin [Aspirin EC] 1 tab PO BID #90 tab 07/13/15 02/04/18 History Oxycodone HCl 90 mg PO Q6H 04/20/17 02/04/18 History testosterone cypionate 200 mg/mL 200 mg IM Q2W #1 ml 08/04/17 02/04/18 Rx intramuscular oil furosemide 20 mg tablet 40 mg PO QDAY #60 tab 08/07/17 02/04/18 Rx potassium chloride ER 20 mEq 20 meq PO QDAY #30 tab 08/07/17 02/04/18 Rx tablet,extended release levalbuterol HFA 45 mcg/actuation 2 puff INH Q4-6H PRN #2 inh 10/25/17 02/04/18 Rx aerosol inhaler Garlic 1 tab PO DAILY 11/15/17 02/04/18 History lisinopril 20 mg tablet 20 mg PO BID #60 tab 11/17/17 02/04/18 Rx triamcinolone acetonide 0.1 % 1 applic TOPICAL QID #454 g 12/25/17 02/04/18 Rx topical cream Allergies/Adverse Reactions: Allergies 3 Allergy/AdvReac Type Severity Reaction Status Date / Time Penicillins Allergy Severe Anaphylaxis Verified 02/02/18 11:06 Sulfa (Sulfonamide Allergy Unknown childhood Verified 02/02/18 11:06 Antibiotics) Review of Systems - Review of Systems All Systems: Reviewed & No Additional Complaints Except as Stated Exam - Vitals Vital Signs: Vital Signs Temperature 98.6 F Temperature Source Temporal Artery Scan Pulse Rate [Pulse Oximeter] 111 Respiratory Rate 18 Blood Pressure [Left Arm] 106/68 Pulse Ox 90 Oxygen Delivery Method Room Air Height 4 ft 3 in Weight 217 lb - General General Appearance: No Acute Distress, Cooperative, Obese - Head Head Exam: Normal Inspection - Eye Eye Exam: POSITIVE: Normal Appearance - ENT ENT Exam: POSITIVE: Normal Exam - Neck Neck Exam: Normal Inspection - Respiratory Respiratory Exam: POSITIVE: Clear to Auscultation - Bilaterally - Cardiovascular Cardiovascular Exam: POSITIVE: RRR - GI/Abdominal GI/Abdominal Exam: POSITIVE: Normal Bowel Sounds, Non Tender, Non Distended, Soft, No Organomegaly - Rectal Rectal Exam: POSITIVE: Deferred - External Exam: POSITIVE: Deferred, Swelling - Extremities Additional Extremities Exam Details: Above-knee amputation - Back Back Exam: POSITIVE: Normal Inspection - Neurological Neurological Exam: POSITIVE: Alert, Oriented x 3, CN II-XII Intact, No Facial Droop, Speech Intact / Clear - Psychiatric Psychiatric Exam: POSITIVE: Normal Affect Results - Labs CBC and BMP: 02/04/18 11:30 02/04/18 11:30 - EKG Data -: EKG Interpreted by Me Rate: Normal EKG Shows Normal: Sinus Rhythm (EKG showed sinus rhythm with incomplete right bundle) - Imaging Status: Report Reviewed by Me (CT abdomen Findings concerning for cholecystitis. Recommend ultrasound. Esophageal wall thickening should be correlated for symptoms of esophagitis. Neoplasm is not strictly excluded. Moderate fecal retention. Severe common femoral artery narrowing. Segmental RLL atelectasis and incidental findings as detailed above.) Assessment and Plan - Patient Problems (1) Vomiting Current Visit: Yes Status: Acute Comment: Possibly secondary to esophagitis versus cholecystitis, will put him on IV fluids and antibiotics will take blood culture. Will repeat his labs tomorrow. Will order ultrasound of the gallbladder. Will speak with Dr. Lam about considering scope tomorrow. Will puts him on Protonix. Code(s): R11.10 - Vomiting, unspecified (2) Leukocytosis Current Visit: Yes Status: Acute Comment: This may be secondary to the dehydration or possibly also secondary to underlying cholecystitis. We'll give him fluids and antibiotics and repeat his labs in the morning. Code(s): D72.829 - Elevated white blood cell count, unspecified (3) Chronic pain syndrome Current Visit: No Status: Acute Onset Date: 05/21/12 Comment: Continue with his previous medications Code(s): G89.4 - Chronic pain syndrome (4) Hypertension Current Visit: Yes Status: Acute Comment: We'll hold off on his lisinopril and see what happens to his blood pressure Code(s): I10 - Essential (primary) hypertension
[2018-02-04] MEDS ORDERED: LEVALBUTEROL TARTRATE INH PRN (15:29)
[2018-02-04] MEDS ORDERED: oxyCODONE IR Tab 15 MG TAB PO SCH (15:30)
[2018-02-04] MEDS ORDERED: LIDOCAINE W/ SODIUM BICARB 0.5 ML SYR SUBD PRN (15:39)
[2018-02-04] MEDS ORDERED: ONDANSETRON 4 MG/2 ML VIAL IVP PRN (15:39)
[2018-02-04] MEDS: Levofloxacin (Premix) 500 MG/100 ML BAG IV SCH (16:53)
[2018-02-04] MEDS: PANTOPRAZOLE IV 40 MG VIAL IVP SCH (16:53)
[2018-02-04] MEDS: NICOTINE 21 MG /DAY PATCH TRANSDERM SCH (16:53)
--- NOTE | 2018-02-04 17:21 | DI ---
EXAM: US Abdomen, RUQ CLINICAL HISTORY: ITS.REASON vomiting, thickened gall bladder on CT Physician Notes: Tech Comments: TECHNIQUE: Real-time ultrasound of the right upper quadrant with image documentation. COMPARISON: CT of same date. FINDINGS: Exam is extremely limited. This is due to bowel gas and the fact that the patient had to be scanned in his wheelchair. Liver is at the upper limits of normal for size. Coarsened echotexture. No definite discrete mass. Normal directionality of portal venous flow. Limited assessment of the right kidney demonstrates no hydronephrosis. The gallbladder contains debris. Difficult to elicit shadowing, but this could be technical. I would favor that there are gallstones. As noted on CT, there is eccentric gallbladder wall thickening. Aviation Engineer does report a Mayorga sign. No clear biliary ductal dilation. IMPRESSION: Material in the gallbladder, likely small stones, but limited due to technical factors. Wall thickening and sonographic Mayorga sign. Study is suspicious for acute cholecystitis.
[2018-02-04] MEDS: OXYCODONE 15 MG PO PRN (18:46)
[2018-02-04] MEDS: metroNIDAZOLE 500mg (Premix) 500 MG/100 ML BAG IV SCH (18:48)
[2018-02-05] MEDS: metroNIDAZOLE 500mg (Premix) 500 MG/100 ML BAG IV SCH ×3 (00:23→16:38)
[2018-02-05] MEDS: OXYCODONE 15 MG PO PRN ×4 (00:24→19:19)
--- NOTE | 2018-02-05 00:33 | PDOC ---
General Adult HPI - General Chief Complaint: Genitourinary Complaint Stated Complaint: vomiting, "dark urine " Date Seen by Provider: 02/04/18 Time Seen by Provider: 10:45 Source: POSITIVE: Patient, Spouse Exam Limitations: POSITIVE: No limitations Nurse's Notes Reviewed & Considered: Yes - History of Present Illness Initial Comment: The patient is a 67-year-old male. 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 Patient was seen in the emergency room 2 days ago with some subxiphoid discomfort. He had an elevated d-dimer at that time and had a CTA of the chest which showed no PEs. He had a negative cardiac workup. Please refer to previously dictated emergency room note. Patient states that shortly after he arrived home after this visit he "vomited up some slimy asparagus." Patient states that this relieved his subxiphoid tenderness. Patient states he does have a history of "heartburn". This morning when the patient urinated he stated that his urine looked "brown". Patient has a lifelong history of tobacco abuse and he does have a history of peripheral vascular disease and has had bilateral [id number] amputations. History of COPD. He also has a history of polycythemia. He continues to smoke at least a pack of cigarettes per day. No diarrhea. No melena, hematochezia, hematemesis , dysuria or hematuria. No chest pain presently. No abdominal pain except for some mild discomfort just right of the epigastrium. Have you received a tetanus shot in the past 10 years?: Unknown Body Location Affected: REPORTS: Abdomen (Vomiting; "brown urine ") Timing: REPORTS: Intermittent Duration: >24 hours (Patient reports one and a half days) Severity: Moderate Quality: REPORTS: "Pain" (Mild discomfort just right of the epigastrium) Context: REPORTS: Other (As above) Modifying Factors: improves with: Vomiting Similar Symptoms Previously: No Recent Care Received: REPORTS: Recently Seen, Treated by MD (As above) Any Prior Injuries Related to Current Complaint?: No - Patient Home Medications Home Medications: Home Medications Cholecalciferol (Vitamin D3) [Vitamin D3] 1 cap PO QD #90 cap 04/07/14 Aspirin [Aspirin EC] 1 tab PO BID #90 tab 07/13/15 Oxycodone HCl 90 mg PO Q6H 04/20/17 testosterone cypionate 200 mg/mL intramuscular oil 200 mg IM Q2W #1 ml 08/04/17 furosemide 20 mg tablet 40 mg PO QDAY #60 tab 08/07/17 potassium chloride ER 20 mEq tablet,extended release 20 meq PO QDAY #30 tab 06/25 levalbuterol HFA 45 mcg/actuation aerosol inhaler 2 puff INH Q4-6H PRN #2 inh Garlic 1 tab PO DAILY 11/15/17 lisinopril 20 mg tablet 20 mg PO BID #60 tab 11/17/17 triamcinolone acetonide 0.1 % topical cream 1 applic TOPICAL QID #454 g - Patient Allergies Allergies/Adverse Reactions: Allergies 3 Allergy/AdvReac Type Severity Reaction Status Date / Time Penicillins Allergy Severe Anaphylaxis Verified 02/02/18 11:06 Sulfa (Sulfonamide Allergy Unknown childhood Verified 02/02/18 11:06 Antibiotics) Past Medical History - heen HEENT History: Hard of Hearing, Dental Disorders Additional HEENT History: NO TEETH Cardiovascular History: Hypertension, PVD, Hyperlipidemia Respiratory History: Asthma, COPD, Home Oxygen Use Additional Respiratory History: 2liters at night Gastrointestinal History: Diverticulitis Additional Gastrointestinal History: LLQ PAIN. CONSTIPATION Genitourinary History: Denies History Endocrine History: Denies History Additional Endocrine History: STOPPED JANUMET FOR 3 MONTHS, LOST 77 POUNDS. PATIENT AND SPOUSE STATES NOT DIABETIC Musculoskeletal History: Gout, Back Pain, Muscle Weakness Prosthesis or Implant: Yes (BACK) Additional Musculoskeletal History: bilateral AKA Neurological History: Denies History Blood Disorders: Polycythemia Psychiatric History: Denies History History of Sexually Transmitted Diseases: No Cancer History: Denies History In Past Year Been Physically Harmed or Verbally Threatened: No History of MDRO: Yes History of Other Communicable Diseases: No Tobacco Use: Current Every Day Smoker Alcohol Use: None In the Past 12 Months, Have Used or Abuse Any Substance: None Previous Surgical History: Yes Type / Date of Surgery: 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, lumbar fusions, LAMINECTOMY, right shoulder TOTAL, STENT IN R LEG, RIGHT CTR, COLONOSCOPY X3, LAZY EYE SURGERY RIGHT, LEFT WRIST SURGERY, PARTIEAL AMPUTATION OF R 3RD TOE, TONSILS, TENOTOMY HAMMERTOES., LEFT ABOVE KNEE AMPUTATION Anesthesia Reactions: No Malignant Hyperthermia: No Significant Family History: Cancer, COPD, Diabetes, Heart disease, Hypertension Past Medical History Reviewed: Reviewed - No Changes ROS - Limitations ROS Limitations: No Limitations Constitution: REPORTS: Denies Symptoms Cardiovascular: REPORTS: Denies Cardiac Symptoms Respiratory: REPORTS: Denies Resp Symptoms Neurological: REPORTS: Denies Neuro Symptoms Gastrointestinal: REPORTS: Abdominal Pain (Mild just right of the epigastrium), Vomitting Endocrine: REPORTS: Denies Symptoms Musculoskeletal: REPORTS: Denies MS Symptoms Genitourinary: REPORTS: Dark Urine Eyes: REPORTS: Denies Symptoms ENT: REPORTS: Denies Symptoms Skin: REPORTS: Denies Skin Symptoms Lympathic: REPORTS: Denies Lympathic Symptoms Immunologic: POSITIVE: Denies Symptoms Psychiatric: POSITIVE: Denies Psych Symptoms General Adult Exam - General Appearance General Appearance: POSITIVE: Alert, Cooperative, No Acute Distress, No Evidence of Trauma - HEENT HEENT: POSITIVE: Head Inspection Nml, Eyes Inspection Nml, Ears Inspection Nml, Nose Inspection Nml, Oral/Dental Inspect. Nml, Pharynx Inspect. Nml, PERRL, EOMI - Pupils Pupil Size: 3 mm: Bilateral (PERRLA) - Neck Neck: POSITIVE: Normal Inspection, Thyroid Normal - Respiratory Respiratory: POSITIVE: No Respiratory Distress, Breath Sounds Normal, Chest Non- Tender - Cardiovascular Cardiovascular: POSITIVE: Regular Rate & Rhythm, No Murmur, No Gallop, PMI Normal Peripheral Pulses: Radial (R): 2+, Radial (L): 2+ - Abdomen Abdomen: Soft: (All Quadrants), Normal Bowel Sounds: (All Quadrants), Denies Tenderness: (All Quadrants), (LLQ), (RLQ), (LUQ), No Splenomegaly: (All Quadrants), No Hepatomegaly: (All Quadrants), No Guarding: (All Quadrants), No Rebound: (All Quadrants), No Palpable Pulse: (All Quadrants), No Palpabale Mass : (All Quadrants), No Distention: (All Quadrants), No Rigidity: (All Quadrants) , Tenderness Noted: (RUQ) (mild) - Back Back: POSITIVE: Normal Inspection - Skin Skin: POSITIVE: Normal Color, Warm, Dry, No Rash - Extremities Extremity: Non-Tender: (All Extremities), Normal ROM: (All Extremities), Normal Inspection: (All Extremities) Additional Extremities Details: Status post bilateral [id number]-[id number] amputations - Neurological / Psychological Neurological: POSITIVE: Affect Apporpriate, Oriented X3, sales associate cashier Normal As Tested, Motor Normal, Sensation Normal Images - Complete Complete: 1 - Mild discomfort on direct palpation 2 - Bilateral lvmki-yak-xinp amputations 3 - Bilateral ezkgp-mkb-jhjg amputations General Adult Progress - Results Reviewed by me Xrays/CTs/US Reviewed by me: Yes Discussed with Radiologist: Yes Radiology Findings: CT abdomen and pelvis with IV contrast shows gallbladder distention with some thickening and edema, possibly's due to cholecystitis. Radiologist also reads that the distal esophagus is thickened with adjacent lymph nodes; neoplasm not excluded. Lab Results Reviewed by Me: Yes Lab Results:: Laboratory Results 3 02/04/18 02/04/18 02/04/18 11:20 11:30 11:30 WBC 28.80 H RBC 6.27 H Hgb 18.7 H Hct 55.4 H MCV 88.4 MCH 29.8 MCHC 33.8 RDW Std Deviation 47.4 RDW Coeff of Darius 14.7 H Plt Count 201 MPV 10.6 Neutrophils % (Manual) 68 Band Neutrophils % 2 Lymphocytes % (Manual) 26 Monocytes % (Manual) 2 Eosinophils % (Manual) 2 Basophils % (Manual) 0 Metamyelocytes % 0 Myelocytes % 0 Promyelocytes % 0 Blast Cells 0 WBC Morphology Comment See comments Plt Morphology Comment Normal morphology RBC Morph Comment Normal morphology Sodium 137 Potassium 3.6 L Chloride 95 L Carbon Dioxide 39 H Anion Gap 3 L BUN 25 H Creatinine 0.8 Estimated GFR > 60 BUN/Creatinine Ratio 31.25 H Glucose 92 Calculated Osmolality 287.0 Lactic Acid Calcium 9.2 Magnesium 2.1 Total Bilirubin 0.7 AST 29 ALT 20 L Alkaline Phosphatase 62 Total Creatine Kinase 68 Troponin I C-Reactive Protein 34.5 H Total Protein 6.9 Albumin 3.6 Globulin 3.3 Albumin/Globulin Ratio 1.00 L Ur Collection Type Cath specimen Urine Color Brown A Urine Clarity Clear Urine pH 6.0 Ur Specific [place] 1.020 Urine Protein >300 A Urine Glucose (UA) Negative Urine Ketones Trace A Urine Occult Blood Negative Urine Nitrate Negative Urine Bilirubin Moderate Urine Urobilinogen 1.0 Ur Leukocyte Esterase Negative Urine RBC 1-3 Urine WBC 1-3 Ur Squamous Epith Cells None Ur Renal Epithelial Cell Rare Urine Crystals None Urine Bacteria None Urine Casts Few Urine Mucus Many Urine Trichomonas None Urine Yeast None Ur Culture Indicated? Culture not set 3 02/04/18 02/04/18 11:30 11:30 WBC RBC Hgb Hct MCV MCH MCHC RDW Std Deviation RDW Coeff of Darius Plt Count MPV Neutrophils % (Manual) Band Neutrophils % Lymphocytes % (Manual) Monocytes % (Manual) Eosinophils % (Manual) Basophils % (Manual) Metamyelocytes % Myelocytes % Promyelocytes % Blast Cells WBC Morphology Comment Plt Morphology Comment RBC Morph Comment Sodium Potassium Chloride Carbon Dioxide Anion Gap BUN Creatinine Estimated GFR BUN/Creatinine Ratio Glucose Calculated Osmolality Lactic Acid 2.4 H Calcium Magnesium Total Bilirubin AST ALT Alkaline Phosphatase Total Creatine Kinase Troponin I < 0.012 C-Reactive Protein Total Protein Albumin Globulin Albumin/Globulin Ratio Ur Collection Type Urine Color Urine Clarity Urine pH Ur Specific [place] Urine Protein Urine Glucose (UA) Urine Ketones Urine Occult Blood Urine Nitrate Urine Bilirubin Urine Urobilinogen Ur Leukocyte Esterase Urine RBC Urine WBC Ur Squamous Epith Cells Ur Renal Epithelial Cell Urine Crystals Urine Bacteria Urine Casts Urine Mucus Urine Trichomonas Urine Yeast Ur Culture Indicated? CBC and BMP: 02/04/18 11:30 02/04/18 11:30 EKG Interpreted/Reviewed By Me:: Yes (sinus tachycardia 98/m) EKG Interpretation:: POSITIVE: Normal Intervals, Normal [place], Normal QRS, Normal ST/T. NEGATIVE: Normal Sinus Rhythm (Sinus tachycardia 8/m), Normal Rate (Sinus tachycardia 98/m) - Patient's Progress Pain Medication Addressed: POSITIVE: Patient Refused School/Work Release Addressed: POSITIVE: Not Applicable Re-Examine Time: 13:15 Re-Examine Comment: Results of laboratory and radiologic testing discussed with patient and his . Patient's white blood cell count is elevated from his visit 2 days ago. Bilirubin is normal and her no pass or red blood cells in the urine, but his urine is dark and almost Coca[employer]a colored. Patient has proteinuria but his renal functions are within normal limits. I'm not exactly sure you what accounts for his urinary discoloration. Patient could have cholecystitis. There is also concern for an esophageal neoplasm. Case was discussed with both Dr. Dsouza, hospitalist and Dr. valentin rivera, surgeon. Patient is noted by Dr. Dsouza with consultation to Dr. Lam. Status: POSITIVE: Unchanged, Re-Examined Antibiotics Given: No - Consult Consult (If Yes, Name of Consulting MD & Time Called): Yes (Dr. Dsouza, hospitalist and Dr. valentin rivera surgeon, [id number]) Consulting MD will see pt:: POSITIVE: [facility] [place]mit Counseled: POSITIVE: Patient, Family, RE: Lab Results, RE: Radiology Results, RE : DX, RE: Need for F/U Patient Care Time - Estimated PCT Patient Care Time (In Minutes): 60 Vital Signs - VS Reviewed Vital Signs Reviewed: Yes Discharge Clinical Impression: Abdominal pain, Vomiting, Urine discoloration Discharge Disposition: Admit to Inpatient Condition: Stable Date Decision to Admit to Inpatient: 02/04/18 Time Decision to Admit to Inpatient: 13:00
[2018-02-05] MEDS: PANTOPRAZOLE IV 40 MG VIAL IVP SCH ×2 (04:09→16:38)
[2018-02-05 06:35] LABS: BASOPHILS # (AUTO) 0.02 10*3/UL; BASOPHILS % (AUTO) 0.1 % (0-1); EOSINOPHILS % (AUTO) 2.4 % (0-8); Hematocrit [HCT] 45.7 % (42.0-52.0); Hemoglobin [HGB] 15.5 g/dL (14.0-18.0); MEAN CORPUSCULAR HEMOGLOBIN 30.5 PG (27-31); MEAN CORPUSCULAR HGB CONC 33.9 g/dL (33-37); MEAN CORPUSCULAR VOLUME 89.8 FL (80-90); MONOCYTES # (AUTO) 1.31 10*3/UL (0.3-0.8); NEUTROPHILS # (AUTO) 12.49 10*3/UL; NEUTROPHILS % (AUTO) 76.5 % (50-80); RED BLOOD COUNT 5.09 10^6/uL (4.70-6.10)
[2018-02-05 06:40] LABS: PLATELET MORPHOLOGY COMMENT NORMAL MORPHOLOGY (NORM); RBC MORPHOLOGY COMMENT NORMAL MORPHOLOGY (NORM); WBC MORPHOLOGY COMMENT NORMAL MORPHOLOGY (NORM)
[2018-02-05 06:58] LABS: BLOOD UREA NITROGEN 18 mg/dL (7-22); SERUM ALBUMIN 2.7 g/dL (3.5-4.8)
[2018-02-05] MEDS: LEVALBUTEROL TARTRATE INH PRN ×2 (07:35→14:54)
--- NOTE | 2018-02-05 08:32 | PDOC(PROG) ---
Date of Service: 02/05/18 Time of Service: 08:30 Interval History: Subjective Patient denying complaint today. No nausea no vomiting since he's been here. He said he had earlier some heartburn. No abdominal pain. He is hungry. He is denying shortness of breath. Denying cough. Objective : Data - Labs CBC and BMP: 02/05/18 06:10 02/05/18 06:10 Objective : Exam - General General Appearance: No Acute Distress, Cooperative, Obese - Head Head Exam: Normal Inspection - Eye Eye Exam: Normal Appearance - ENT ENT Exam: Normal Exam - Neck Neck Exam: Normal Inspection - Respiratory Additional Respiratory Exam Details: Decreased air entry, occasional wheeze. That clears with coughing. - Cardiovascular Cardiovascular Exam: RRR - GI/Abdominal GI/Abdominal Exam: Normal Bowel Sounds, Non Tender, Non Distended, Soft, No Organomegaly - Rectal Rectal Exam: Deferred - External Exam: Deferred Exam: Deferred - Extremities Additional Extremities Exam Details: Above-knee amputations. - Neurological Neurological Exam: Alert, Oriented x 3, CN II-XII Intact, No Facial Droop, Speech Intact / Clear - Psychiatric Psychiatric Exam: Flat Affect Assessment and Plan - Patient Problems (1) Vomiting Current Visit: Yes Status: Acute Comment: This is resolved. Either esophagitis versus cholecystitis. His white count is lower today to 16,000 from 28,000. Continue hydration continue antibiotics. For the esophagitis he is on Protonix continue. I did speak with Dr. Lam and plan to see him today and probably scope noontime. He did have the ultrasound which raised the possibility of cholecystitis. He is covered with antibiotics. He will be assessed by Dr. Lam and will see his opinion Code(s): R11.10 - Vomiting, unspecified (2) Leukocytosis Current Visit: Yes Status: Acute Comment: This is lower today. Code(s): D72.829 - Elevated white blood cell count, unspecified (3) Chronic pain syndrome Current Visit: No Status: Acute Onset Date: 05/21/12 Comment: Continue same pain medications Code(s): G89.4 - Chronic pain syndrome (4) Hypertension Current Visit: Yes Status: Acute Comment: Continue holding the lisinopril Code(s): I10 - Essential (primary) hypertension (5) Hypokalemia Current Visit: Yes Status: Acute Comment: Potassium is lower today we'll give him IV potassium Code(s): E87.6 - Hypokalemia
[2018-02-05] MEDS: NICOTINE 21 MG /DAY PATCH TRANSDERM SCH (08:42)
[2018-02-05] MEDS ORDERED: Sodium Chloride 0.9% 250 ML ONE (08:43)
[2018-02-05] MEDS ORDERED: Lactated Ringers 1,000 ML PRIMARY IV ONE (11:20)
[2018-02-05] MEDS ORDERED: LIDOCAINE W/ SODIUM BICARB 0.5 ML SYR ONE (11:40)
[2018-02-05] MEDS ORDERED: PROPOFOL 10 MG/1 ML (200 MG/20 ML) VIAL IV ONE (12:21)
--- NOTE | 2018-02-05 12:34 | GEN.OPNOTE ---
EGD Operative Note Surgery Date: 02/05/18 Preoperative Diagnosis: Nausea vomiting abnormal CT scan Postoperative Diagnosis: Duodenal ulcer. Hiatal hernia. Thrush Procedure: EGD with biopsies Surgeon: Jeff Lam MD Anesthesia Provider: Debby Armendariz CRNA Anesthesia Type: MAC Indications: Patient's been having nausea and vomiting and epigastric abdominal pain. Patient had a CT scan showed thickening esophagus. Findings: Esophagus: Olympus video EGD scope inserted posterior pharynx and esophagus under direct visualization. Patient had a whitish exudate is consistent with progression the distal esophagus. GE Junction : At 38 cm from incisors Fundus : Patient had a hiatal hernia area the stomach had acute gastritis Body : Body stomach appeared be normal Prepyloric : Prepyloric areas basically normal. Biopsy taken for CLOtest Small Intestine : First portion of the duodenum shows mild inflammation. Second portion of duodenal ulcer. Not actively bleeding. Biopsy taken. Third portion of duodenum appeared be normal A lubricated flexible upper endoscope was inserted and passed through the esophagus and stomach into the duodenum. Endoscopy Procedures - Endoscopy Procedures Primary Endoscopy Procedure: 07997 : EGD w/Biospy
[2018-02-05] MEDS ORDERED: FLUCONAZOLE 200 MG TABLET PO ONE (13:03)
--- NOTE | 2018-02-05 13:14 | CRNA.PROGR ---
Anesthesia Time - Procedure/Recovery Time Start Date: 02/05/18 End Date: 02/05/18 Anesthesia : Time In: 12:17 Anesthesia : Time Out: 12:37 Anesthesia : Total Time: 20 - Total Anesthesia Time Total Anesthesia Time (minutes): 20 - Other Weight: 104.326 kg Height: 4 ft 3 in Body Mass Index (BMI): 62.1 Physical Status: P3 Anesthesia Type: MAC
--- NOTE | 2018-02-05 13:17 | CRNA.PROGR ---
Post Anesthesia Phase II - Post Anesthesia Phase II Patient Stable and Discharged To: Med/Surg Care Assumed By Surgeon: Peter Lam MD Temperature: 99.3 F Pulse Rate: 73 Respiratory Rate: 12 Blood Pressure: 117/72 Pulse Ox: 94 Total Carlota Score at Discharge: 9 Post Anesthesia Discharge Criteria Met: Yes
--- NOTE | 2018-02-05 14:16 | MINORPROC ---
Outpatient History & Physical Chief Complaint: Patient nausea vomiting epigastric abdominal pain Present Illness: Patient presents with nausea and vomiting. This is been going on for approximately 4 days. Patient has an epigastric abdominal pain he states last time he threw up he got rid of some undigested food and feels a lot better. CT scan showed possible thickening of esophagus and cannot exclude esophageal cancer Past History: Please see Dr. Dsouza's notes. Patient has bilateral amputee. His coronary artery disease. Continues to smoke History: Respiratory: WNL, Cardiovascular: WNL, Gastrointestinal: WNL Physical Exam: Chest/Lungs: WNL, Heart: WNL, Abdomen: WNL Home Medications: Home Medications 3 Medication Instructions Recorded Confirmed Type Cholecalciferol (Vitamin D3) 1 cap PO QD #90 cap 04/07/14 02/04/18 History [Vitamin D3] Aspirin [Aspirin EC] 1 tab PO BID #90 tab 07/13/15 02/04/18 History Oxycodone HCl 90 mg PO Q6H 04/20/17 02/04/18 History testosterone cypionate 200 mg/mL 200 mg IM Q2W #1 ml 08/04/17 02/04/18 Rx intramuscular oil furosemide 20 mg tablet 40 mg PO QDAY #60 tab 08/07/17 02/04/18 Rx potassium chloride ER 20 mEq 20 meq PO QDAY #30 tab 08/07/17 02/04/18 Rx tablet,extended release levalbuterol HFA 45 mcg/actuation 2 puff INH Q4-6H PRN #2 inh 10/25/17 02/04/18 Rx aerosol inhaler Garlic 1 tab PO DAILY 11/15/17 02/04/18 History lisinopril 20 mg tablet 20 mg PO BID #60 tab 11/17/17 02/04/18 Rx triamcinolone acetonide 0.1 % 1 applic TOPICAL QID #454 g 12/25/17 02/04/18 Rx topical cream Allergies/Adverse Reactions: Allergies 3 Allergy/AdvReac Type Severity Reaction Status Date / Time Penicillins Allergy Severe Anaphylaxis Verified 02/05/18 06:38 Sulfa (Sulfonamide Allergy Unknown childhood Verified 02/05/18 06:38 Antibiotics) Impression / Plan: Abnormal CT scan with nausea and vomiting Would recommend the patient have an EGD. The risk and potential complications of the procedure were discussed with the patient.. They understood this. Also discussed alternatives diagnostic and treatment options. Will get the EGD set up at the first available date. CPT 71389 Transfusion: Transfusion Not Anticipated Anesthesia Plans: Sedation ASA Class: Class 3 : Severe Systemic Disease Under Control
--- NOTE | 2018-02-05 15:04 | PTI REPORT ---
Thank you for the referral of Galo Obrien. He was seen on 02/05/18 for an inpatient evaluation secondary to a pressure ulcer. SUBJECTIVE: The patient is a 67-year-old male. At the time of the evaluation both the patient and the patient's spouse were present. The patient reports they were supposed to leave this morning for a three day drive up to [place] for a two week cruise to [place]; however, he came into the emergency room with complaints of dark urine. Being concerned of being dehydrated, he figured he wanted to get this checked out before he left on his cruise; however, due to other concerns, he was admitted. At this time they are debating whether or not to still go on their vacation; however, the patient's spouse states at this time if he is not released today they will not go. She states that they are very familiar with his open wounds and have been treating them for years. PAST MEDICAL HISTORY: Past medical history can be found in the patient's medical record. OBJECTIVE FINDINGS: This patient is very familiar to the therapist. He has been a patient on and off for several years for different areas of wound care. The patient typically spends all of his time in his power wheelchair with a past medical history of an above the knee amputation; therefore, he is dependent on the power wheelchair for all modes of transportation. We have seen Lloyd for pressure ulcers, both on his sacrum as well as on bilateral ischial tuberosities, which has required not only wound care but customizing his power wheelchair along with his seat cushion. The patient has received countless verbal education on the importance of proper nutrition as well as quitting smoking which he has not done. Due to the patient's spouse being unable to help with transfers, the patient performs them with moderate assistance of just proper placement of his chair as well as the bed, but with significant shearing on his sacrum and ischial tuberosity. Initially the patient presented in bed with the head of the bed raised up because the patient is unable to maintain a supine position due to bilateral hip contractures as well as difficulty breathing. He is unwilling to attempt a prone position. The patient required moderate assistance x1 for power wheelchair placement and proper bed height for transferring from the bed to his chair. The patient was able to transfer with stand by assistance into his chair with significant shearing forces on the sacrum and ischial tuberosity. In order to inspect the right ischial tuberosity pressure ulcer, the patient was laying left side lying from his chair into the bed. Pictures were attempted; however, due to the camera's battery being , this was unable to be performed. He has an area of a pressure ulcer on the left ischial tuberosity measuring 2.5 centimeters long x 2.5 centimeters wide that is a Stage II with irregular borders and approximately a 4-5 centimeter area around the pressure ulcer of generalized macerated skin. ASSESSMENT: Problem List: Increased risk of further skin breakdown Open wound Risk of infection Decreased ability to transfer Physical Therapy Goals: To be met by discharge from inpatient: Patient will promote clean wound healing. Patient and spouse will be educated on transferring techniques as well as importance of pressure relieving and healthy habits to promote clean wound healing. TREATMENT PLAN: Patient will be seen on a PRN basis for wound care per orders. INITIAL TREATMENT: Treatment today consisted of the initial evaluation followed by having the patient transfer from the bed to the chair. The right ischial tuberosity area was cleansed with wound cleanser followed by an application of a 6x6 Mepilex with Calamine lotion around the area. The therapist discussed in great detail with the patient and the patient's what they have been using at home under Dr. Jean-Baptiste's orders. It was recommended to continue with this plan of care. EMILY
[2018-02-05] MEDS: Levofloxacin (Premix) 500 MG/100 ML BAG IV SCH (15:13)
[2018-02-05] MEDS ORDERED: CALCIUM CARBONATE 500 MG (TUMS) CHEWABLE TABLET PO PRN (17:31)
[2018-02-06] MEDS: metroNIDAZOLE 500mg (Premix) 500 MG/100 ML BAG IV SCH ×2 (00:02→07:04)
[2018-02-06 00:29] VITALS: O2SAT 90
[2018-02-06] MEDS: OXYCODONE 15 MG PO PRN (01:13)
[2018-02-06] MEDS: PANTOPRAZOLE IV 40 MG VIAL IVP SCH (05:45)
[2018-02-06 06:40] LABS: BASOPHILS # (AUTO) 0.03 10*3/UL; BASOPHILS % (AUTO) 0.3 % (0-1); EOSINOPHILS # (AUTO) 0.53 10*3/UL; EOSINOPHILS % (AUTO) 4.7 % (0-8); Hematocrit [HCT] 46.5 % (42.0-52.0); Hemoglobin [HGB] 15.5 g/dL (14.0-18.0); LYMPHOCYTES # (AUTO) 2.08 10*3/uL; MEAN CORPUSCULAR HEMOGLOBIN 29.9 PG (27-31); MEAN CORPUSCULAR HGB CONC 33.3 g/dL (33-37); MEAN CORPUSCULAR VOLUME 89.8 FL (80-90); MEAN PLATELET VOLUME 10.7 FL (7.4-12.2); MONOCYTES % (AUTO) 9.7 % (5-15); NEUTROPHILS # (AUTO) 7.53 10*3/UL; NEUTROPHILS % (AUTO) 66.5 % (50-80); RED BLOOD COUNT 5.18 10^6/uL (4.70-6.10)
[2018-02-06 06:50] VITALS: BP 130/78; RESP 18; TEMP 97.4
[2018-02-06 06:54] LABS: PLATELET MORPHOLOGY COMMENT NORMAL MORPHOLOGY (NORM); RBC MORPHOLOGY COMMENT NORMAL MORPHOLOGY (NORM); WBC MORPHOLOGY COMMENT NORMAL MORPHOLOGY (NORM)
[2018-02-06] MEDS: LEVALBUTEROL TARTRATE INH PRN (06:54)
[2018-02-06 08:14] LABS: BLOOD UREA NITROGEN 12 mg/dL (7-22); BUN/CREATININE RATIO 17.14 (6-20)
--- NOTE | 2018-02-06 08:56 | DCSUMMARY ---
Hospitalization Summary Admit Date: 02/04/2018 Discharge Date: 02/06/18 Hospital Course: Discharge diagnoses 1. Esophageal candidiasis 2. Duodenal ulcer 3. Probable chronic cholecystitis 4. History of gout 5. History of hypertension 6. History of chronic pain syndrome 7. History of hypercholesterolemia 8. History of peripheral neuropathy 9. History of hypogonadism 10. History of bilateral above-knee amputations Hospital course This is a 67 years old male with medical history significant for history of hypertension, chronic pain syndrome, history of gout, history of bilateral above -knee amputation and sleep apnea who presented to the hospital on Monday because of epigastric discomfort he was having pain he said that started that day was constant and severe because of it he came into the ER had testing done and was sent home he said he didn't want to be admitted to the hospital. He felt nauseated after that then started to vomit multiple times on Monday and Monday he did vomit and there was a piece of asparagus he said that was present. After he vomited that the pain seems to be gone. Last time he vomited was the morning of admission. He noticed hid urine was dark and because of that he came into the ER. He was denying pain when I saw him he was having some upset stomach he said. CT of the abdomen showed thickening of the esophagus suggestive of esophagitis and also thickening of the gallbladder possible cholecystitis. In addition his white count was elevated to 28,000 he was given fluids and was admitted. His exam was remarkable for absence of abdominal tenderness, he was dehydrated. We gave him fluid and we started him empirically on IV antibiotics. US of the abdomen was technically difficult but the raise the possibility of small stones and thickening of the gallbladder question cholecystitis. He was seen by Dr. Lam who did a scope which showed esophageal candidiasis and duodenal ulcer. Regarding the ultrasound finding of possible cholecystitis Dr. Lam thought clinically acute cholecystitis seems to be less likely. On the day of discharge he was feeling better he tolerated diet, without he can be discharged home Protonix for the ulcer, I did start him on empirically on antibiotics for possible cholecystitis when he was admitted and I think will give him a total course of 5 days. For the esophageal candidiasis we put him on fluconazole. He need follow-up with Dr. Alba and with his primary. Dr. Lam may consider doing more testing for his gallbladder as an outpatient and may repeat his scope. Laboratory Results 02/06/18 02/06/18 Range/Units 04:20 04:20 WBC 11.31 H (4.8-10.8) 10^3/uL RBC 5.18 (4.70-6.10) 10^6/uL Hgb 15.5 (14.0-18.0) g/dL Hct 46.5 (42.0-52.0) % MCV 89.8 (80-90) FL MCH 29.9 (27-31) PG MCHC 33.3 (33-37) g/dL RDW Std Deviation 47.2 (39-50) fL RDW Coeff of Darius 14.5 (11.5-14.5) % Plt Count 190 (140-350) 10*3/uL MPV 10.7 (7.4-12.2) FL Immature Gran % (Auto) 0.4 (0-5) % Neut % (Auto) 66.5 (50-80) % Lymph % (Auto) 18.4 (10-50) % [place] % (Auto) 9.7 (5-15) % Eos % (Auto) 4.7 (0-8) % Baso % (Auto) 0.3 (0-1) % Immature Gran # (Auto) 0.04 10*3/UL Neut # (Auto) 7.53 10*3/UL Lymph # (Auto) 2.08 10*3/uL [place] # (Auto) 1.10 H (0.3-0.8) 10*3/UL Eos # (Auto) 0.53 10*3/UL Baso # (Auto) 0.03 10*3/UL WBC Morphology Comment Normal morphology (NORM) Plt Morphology Comment Normal morphology (NORM) RBC Morph Comment Normal morphology (NORM) Sodium 138 (135-145) meq/L Potassium 3.6 L (3.8-5.2) meq/L Chloride 107 (98-112) meq/L Carbon Dioxide 26 (23-33) meq/L Anion Gap 5 (5-20) BUN 12 (7-22) mg/dL Creatinine 0.7 (0.70-1.50) mg/dL Estimated GFR > 60 (>60 ml/min/1.73m(2)) BUN/Creatinine Ratio 17.14 (6-20) Glucose 88 (78-110) mg/dL Calculated Osmolality 284.0 (267-292) mOsm/kg Calcium 8.0 L (8.7-10.7) mg/dL Total Bilirubin 0.4 (0.3-1.2) mg/dL AST 34 (21-57) IU/L ALT 31 (21-72) IU/L Alkaline Phosphatase 51 (38-126) IU/L Total Protein 5.8 L (6.1-8.0) g/dL Albumin 3.0 L (3.5-4.8) g/dL Globulin 2.8 (2.50-4.10) g/dL Albumin/Globulin Ratio 1.00 L (1.3-2.0) mg/g Discharge suction Diet regular Activity as started Medications Current Medication(s) 3 Medication Instructions Recorded Confirmed Type Cholecalciferol (Vitamin D3) 1 cap PO QD #90 cap 04/07/14 02/04/18 History [Vitamin D3] Aspirin [Aspirin EC] 1 tab PO BID #90 tab 07/13/15 02/04/18 History Oxycodone HCl 90 mg PO Q6H 04/20/17 02/04/18 History testosterone cypionate 200 mg/mL 200 mg IM Q2W #1 ml 08/04/17 02/04/18 Rx intramuscular oil furosemide 20 mg tablet 40 mg PO QDAY #60 tab 08/07/17 02/04/18 Rx potassium chloride ER 20 mEq 20 meq PO QDAY #30 tab 08/07/17 02/04/18 Rx tablet,extended release levalbuterol HFA 45 mcg/actuation 2 puff INH Q4-6H PRN #2 inh 10/25/17 02/04/18 Rx aerosol inhaler Garlic 1 tab PO DAILY 11/15/17 02/04/18 History lisinopril 20 mg tablet 20 mg PO BID #60 tab 11/17/17 02/04/18 Rx triamcinolone acetonide 0.1 % 1 applic TOPICAL QID #454 g 12/25/17 02/04/18 Rx topical cream Fluconazole [Diflucan] 200 mg PO DAILY #10 tab 02/06/18 Rx Levofloxacin [Levaquin] 500 mg PO DAILY #3 tab 02/06/18 Rx Metronidazole 500 mg PO TID #9 tab 02/06/18 Rx Pantoprazole Sodium [Protonix] 40 mg PO DAILY #30 tab 02/06/18 Rx Follow-up with PCP in 1-2 weeks and follow-up with Dr. Lam in 2 weeks Condition at discharge was stable for discharge Exam - Vitals Vital Signs: Vital Signs Temperature 97.4 F Temperature Source Temporal Artery Scan Pulse Rate [Apical] 60 Pulse Rate [Pulse Oximeter] 79 Pulse Rate 73 Respiratory Rate 18 Blood Pressure [Left Arm] 130/78 Blood Pressure 117/72 Pulse Ox 90 Oxygen Flow Rate room air Oxygen Delivery Method Room Air Height 4 ft 3 in Weight 230 lb - General General Appearance: No Acute Distress, Cooperative - Head Head Exam: Normal Inspection - Eye Eye Exam: POSITIVE: Normal Appearance - ENT ENT Exam: POSITIVE: Normal Exam - Neck Neck Exam: Normal Inspection - Respiratory Additional Respiratory Exam Details: Decreased air entry otherwise clear - Cardiovascular Cardiovascular Exam: POSITIVE: RRR - GI/Abdominal GI/Abdominal Exam: POSITIVE: Normal Bowel Sounds, Non Tender, Non Distended, Soft, No Organomegaly - Rectal Rectal Exam: POSITIVE: Deferred - External Exam: POSITIVE: Deferred - Extremities Additional Extremities Exam Details: Above-knee amputation bilaterally - Back Back Exam: POSITIVE: Normal Inspection - Neurological Neurological Exam: POSITIVE: Alert, Oriented x 3, CN II-XII Intact, No Facial Droop, Speech Intact / Clear - Psychiatric Psychiatric Exam: POSITIVE: Normal Affect Patient Problems - Patient Problem List (1) Vomiting Status: Acute Code(s): R11.10 - Vomiting, unspecified Category: Medical (2) Leukocytosis Status: Acute Code(s): D72.829 - Elevated white blood cell count, unspecified Category: Medical (3) Chronic pain syndrome Status: Acute Onset Date: 05/21/12 Code(s): G89.4 - Chronic pain syndrome Category: Medical (4) Hypertension Status: Acute Code(s): I10 - Essential (primary) hypertension Category: Medical (5) Hypokalemia Status: Acute Code(s): E87.6 - Hypokalemia Category: Medical
[2018-02-06] MEDS ORDERED: FLUCONAZOLE 200 MG TABLET PO SCH (09:00)
== END 2018-02-06 09:46 | disposition home or self-care (01) | DRG 370 ==
LOC: ER 10:25 → MED/SURG 14:27 → OPS 02-05 11:35 → MED/SURG 02-05 12:42
PROVIDERS: ADMIT Internal Medicine; ATTEND Internal Medicine